=== PATIENT | female | born 1945 | race African-American/Black ===

== ENCOUNTER 2017-08-15 09:03 | Outpatient (RCR) | payer MEDICARE, OTHER ==
[~2017-08-15 09:03] MED LIST: LIDOCAINE VISC 2% SOLN 15 ML UDC ONE; MINERAL OIL/PETROLAT/GLYCERI 6OZ BTL ONE; MUPIROCIN 2% OINT 22 GM TUBE ONE
[2017-08-15] MEDS ORDERED: MUPIROCIN 2% OINT 22 GM TUBE ONE (14:21)
[2017-08-15] MEDS ORDERED: MINERAL OIL/PETROLAT/GLYCERI 6OZ BTL ONE (14:21)
== END 2017-08-17 ==
LOC: WCC 09:03
PROVIDERS: ATTEND Family Medicine
DX: I87.332 Chronic venous hypertension (idiopathic) with ulcer and inflammation of left lower extremity (principal); L97.822 Non-pressure chronic ulcer of other part of left lower leg with fat layer exposed; G89.29 Other chronic pain; G90.09 Other idiopathic peripheral autonomic neuropathy; I87.2 Venous insufficiency (chronic) (peripheral); I89.0 Lymphedema, not elsewhere classified; R60.0 Localized edema; B96.89 Other specified bacterial agents as the cause of diseases classified elsewhere; B96.5 Pseudomonas (aeruginosa) (mallei) (pseudomallei) as the cause of diseases classified elsewhere; B95.2 Enterococcus as the cause of diseases classified elsewhere; I10 Essential (primary) hypertension; K21.9 Gastro-esophageal reflux disease without esophagitis; J45.909 Unspecified asthma, uncomplicated
CPT/HCPCS: 11042; 11045; 29581 ×8; 87071; 87075; 87186; 87205; 97597; 97598; G0463 ×2

== ENCOUNTER → 2017-09-17 | Outpatient (RCR) | payer MEDICARE, OTHER ==
[~2017-09-17] MED LIST changes: +COLLAGENASE OINTMENT 30 GM TUBE ONE; +LIDOCAINE/PRILOCAINE 2.5-2.5% KIT ONE
== END ==
LOC: WCC 08-20 10:03
PROVIDERS: ATTEND Family Medicine
DX: E11.65 Type 2 diabetes mellitus with hyperglycemia (principal); E11.21 Type 2 diabetes mellitus with diabetic nephropathy; E11.628 Type 2 diabetes mellitus with other skin complications; L97.822 Non-pressure chronic ulcer of other part of left lower leg with fat layer exposed; I87.332 Chronic venous hypertension (idiopathic) with ulcer and inflammation of left lower extremity; R60.0 Localized edema; G89.29 Other chronic pain; I87.2 Venous insufficiency (chronic) (peripheral); I89.0 Lymphedema, not elsewhere classified; B95.2 Enterococcus as the cause of diseases classified elsewhere; B96.5 Pseudomonas (aeruginosa) (mallei) (pseudomallei) as the cause of diseases classified elsewhere; B96.89 Other specified bacterial agents as the cause of diseases classified elsewhere; G90.09 Other idiopathic peripheral autonomic neuropathy; I10 Essential (primary) hypertension; J45.909 Unspecified asthma, uncomplicated; K21.9 Gastro-esophageal reflux disease without esophagitis
CPT/HCPCS: 11042 ×3; 11045 ×3; 29581 ×6; 97597; 97598; 97602 ×3; G0463 ×2

== ENCOUNTER → 2017-10-15 | Outpatient (RCR) | payer MEDICARE, OTHER ==
[~2017-10-15] MED LIST changes: +MINERAL OIL/PETROLAT/GLYCERI 2OZ CRM ONE
== END ==
LOC: WCC 09-19 09:51
PROVIDERS: ATTEND Family Medicine
DX: E11.65 Type 2 diabetes mellitus with hyperglycemia (principal); E11.21 Type 2 diabetes mellitus with diabetic nephropathy; E11.628 Type 2 diabetes mellitus with other skin complications; I87.332 Chronic venous hypertension (idiopathic) with ulcer and inflammation of left lower extremity; L97.822 Non-pressure chronic ulcer of other part of left lower leg with fat layer exposed; R60.0 Localized edema; G89.29 Other chronic pain; K21.9 Gastro-esophageal reflux disease without esophagitis; J45.909 Unspecified asthma, uncomplicated; I87.2 Venous insufficiency (chronic) (peripheral); I10 Essential (primary) hypertension; G90.09 Other idiopathic peripheral autonomic neuropathy
CPT/HCPCS: 87071; 87075; 87186; 87205

== ENCOUNTER 2017-11-12 10:17 | Outpatient (RCR) | payer MEDICARE, OTHER ==
[2017-10-29 15:13] LABS: BASOPHILS % 0.5 % (0.0-1.0); EOSINOPHILS # (AUTO) 0.1 (0.0-0.4); EOSINOPHILS % 2.1 % (0.0-6.0); HEMATOCRIT 37.2 % (34.2-44.1); HEMOGLOBIN 11.7 g/dL (12.0-16.0); LYMPHOCYTES # (AUTO) 2.2 (1.0-3.2); LYMPHOCYTES % 36.6 % (18.0-39.1); MEAN CORPUSCULAR HEMOGLOBIN 27.2 pg (28-32); MEAN CORPUSCULAR HGB CONC 31.5 g/dL (31-35); MEAN CORPUSCULAR VOLUME 86.5 fL (81-99); MONOCYTES # (AUTO) 0.7 (0.2-0.8); MONOCYTES % 10.7 % (4.4-11.3); NEUTROPHILS % 49.6 % (38.7-80.0); PLATELET COUNT 227 x10e3/uL (140-360); RED CELL DISTRIBUTION WIDTH 15.9 % (11.7-14.4)
[2017-10-29 15:29] LABS: ANION GAP 12.1 mmol/L (8-16); BLOOD UREA NITROGEN 21 mg/dL (7-26); BUN/CREATININE RATIO 27 (6-25); CARBON DIOXIDE 29 mmol/L (22-29); CHLORIDE 104 mmol/L (98-107); CREATININE, SERUM 0.78 mg/dL (0.57-1.11); EST GLOMERULAR FILTRATION RATE > 60 ML/MIN (60-); GLUCOSE 187 mg/dL (74-118); POTASSIUM 5.1 mmol/L (3.5-5.1); SODIUM 140 mmol/L (136-145)
[~2017-11-12 10:17] MED LIST changes: -COLLAGENASE OINTMENT 30 GM TUBE ONE; -LIDOCAINE VISC 2% SOLN 15 ML UDC ONE; -MINERAL OIL/PETROLAT/GLYCERI 2OZ CRM ONE
[2017-11-12] MEDS ORDERED: LIDOCAINE/PRILOCAINE 2.5-2.5% KIT ONE (13:41)
[2017-11-12] MEDS ORDERED: MINERAL OIL/PETROLAT/GLYCERI 6OZ BTL ONE (13:41)
== END 2017-11-15 ==
LOC: WCC 10:17
PROVIDERS: ATTEND Family Medicine
DX: E11.628 Type 2 diabetes mellitus with other skin complications (principal); E11.21 Type 2 diabetes mellitus with diabetic nephropathy; E11.65 Type 2 diabetes mellitus with hyperglycemia; L97.922 Non-pressure chronic ulcer of unspecified part of left lower leg with fat layer exposed; G89.29 Other chronic pain; I87.332 Chronic venous hypertension (idiopathic) with ulcer and inflammation of left lower extremity; I87.2 Venous insufficiency (chronic) (peripheral); I89.0 Lymphedema, not elsewhere classified; R60.0 Localized edema; G90.09 Other idiopathic peripheral autonomic neuropathy; K21.9 Gastro-esophageal reflux disease without esophagitis; J45.909 Unspecified asthma, uncomplicated; I10 Essential (primary) hypertension
CPT/HCPCS: 11042; 11045; 15271; 15272; 29581 ×10; 36415; 80048; 83036; 84134; 85025; 97597; 97598; Q4121

== ENCOUNTER 2017-12-10 08:21 | Outpatient (RCR) | payer MEDICARE, OTHER ==
[~2017-12-10 08:21] MED LIST changes: -MUPIROCIN 2% OINT 22 GM TUBE ONE
[2017-12-10] MEDS ORDERED: MINERAL OIL/PETROLAT/GLYCERI 6OZ BTL ONE (17:36)
[2017-12-10] MEDS ORDERED: LIDOCAINE/PRILOCAINE 2.5-2.5% KIT ONE (17:36)
== END 2017-12-15 ==
LOC: WCC 08:21
PROVIDERS: ATTEND Family Medicine
DX: E11.65 Type 2 diabetes mellitus with hyperglycemia (principal); E11.21 Type 2 diabetes mellitus with diabetic nephropathy; E11.628 Type 2 diabetes mellitus with other skin complications; I87.332 Chronic venous hypertension (idiopathic) with ulcer and inflammation of left lower extremity; L97.822 Non-pressure chronic ulcer of other part of left lower leg with fat layer exposed; G89.29 Other chronic pain; R60.0 Localized edema; I89.0 Lymphedema, not elsewhere classified; I87.2 Venous insufficiency (chronic) (peripheral); G90.09 Other idiopathic peripheral autonomic neuropathy; I10 Essential (primary) hypertension; E78.00 Pure hypercholesterolemia, unspecified; J45.909 Unspecified asthma, uncomplicated; K21.9 Gastro-esophageal reflux disease without esophagitis
CPT/HCPCS: 11042; 11045; 15271; 15272; 29581 ×8; Q4121

== ENCOUNTER 2018-01-14 09:41 | Outpatient (RCR) | payer MEDICARE, OTHER ==
[2018-01-14] MEDS ORDERED: LIDOCAINE/PRILOCAINE 2.5-2.5% KIT ONE (12:14)
[2018-01-14] MEDS ORDERED: MINERAL OIL/PETROLAT/GLYCERI 6OZ BTL ONE (12:14)
== END 2018-01-15 ==
LOC: WCC 09:41
PROVIDERS: ATTEND Family Medicine
DX: E11.21 Type 2 diabetes mellitus with diabetic nephropathy (principal); E11.65 Type 2 diabetes mellitus with hyperglycemia; E11.628 Type 2 diabetes mellitus with other skin complications; I87.332 Chronic venous hypertension (idiopathic) with ulcer and inflammation of left lower extremity; L97.822 Non-pressure chronic ulcer of other part of left lower leg with fat layer exposed; I87.2 Venous insufficiency (chronic) (peripheral); G90.09 Other idiopathic peripheral autonomic neuropathy; I89.0 Lymphedema, not elsewhere classified; G89.29 Other chronic pain; R60.0 Localized edema; I10 Essential (primary) hypertension; E78.00 Pure hypercholesterolemia, unspecified; J45.909 Unspecified asthma, uncomplicated; K21.9 Gastro-esophageal reflux disease without esophagitis
CPT/HCPCS: 11042; 15271; 15272; 29581 ×8; 87071; 87075; 87186; 87205; 97597; 97598; Q4121

== ENCOUNTER 2018-01-16 13:25 | Outpatient (RCR) | payer MEDICARE, OTHER ==
[2018-01-16] MEDS ORDERED: MINERAL OIL/PETROLAT/GLYCERI 6OZ BTL ONE (13:43)
[2018-01-19] MEDS ORDERED: MINERAL OIL/PETROLAT/GLYCERI 6OZ BTL ONE (16:39)
[2018-01-21] MEDS ORDERED: LIDOCAINE/PRILOCAINE 2.5-2.5% KIT ONE (13:08)
[2018-01-21] MEDS ORDERED: MINERAL OIL/PETROLAT/GLYCERI 6OZ BTL ONE (13:08)
[2018-01-28] MEDS ORDERED: LIDOCAINE/PRILOCAINE 2.5-2.5% KIT ONE (13:22)
[2018-01-28] MEDS ORDERED: MINERAL OIL/PETROLAT/GLYCERI 6OZ BTL ONE (13:22)
[2018-01-30] MEDS ORDERED: MINERAL OIL/PETROLAT/GLYCERI 6OZ BTL ONE (11:44)
[2018-02-02] MEDS ORDERED: MINERAL OIL/PETROLAT/GLYCERI 6OZ BTL ONE (16:30)
[2018-02-09] MEDS ORDERED: MINERAL OIL/PETROLAT/GLYCERI 6OZ BTL ONE (13:31)
[2018-02-11] MEDS ORDERED: LIDOCAINE/PRILOCAINE 2.5-2.5% KIT ONE (17:02)
[2018-02-11] MEDS ORDERED: MINERAL OIL/PETROLAT/GLYCERI 6OZ BTL ONE (17:02)
[2018-02-13] MEDS ORDERED: MINERAL OIL/PETROLAT/GLYCERI 6OZ BTL ONE (15:31)
== END 2018-02-14 ==
LOC: PT 13:25
PROVIDERS: ATTEND Specialist
DX: M17.0 Bilateral primary osteoarthritis of knee (principal); M25.562 Pain in left knee; M25.561 Pain in right knee; M25.662 Stiffness of left knee, not elsewhere classified; M25.661 Stiffness of right knee, not elsewhere classified; R26.2 Difficulty in walking, not elsewhere classified; M62.81 Muscle weakness (generalized)
CPT/HCPCS: 11042 ×2; 11045 ×2; 15271; 15272; 29581 ×8; 97110; G8979; G8980; Q4131

== ENCOUNTER 2018-02-13 14:51 | Outpatient (RCR) | payer MEDICARE, OTHER | END 2018-02-14 | LOC: WCC 14:51 | PROVIDERS: ATTEND Family Medicine | DX: E11.21 Type 2 diabetes mellitus with diabetic nephropathy (principal); E11.65 Type 2 diabetes mellitus with hyperglycemia; E11.628 Type 2 diabetes mellitus with other skin complications; I87.332 Chronic venous hypertension (idiopathic) with ulcer and inflammation of left lower extremity; L97.822 Non-pressure chronic ulcer of other part of left lower leg with fat layer exposed; G89.29 Other chronic pain; I87.2 Venous insufficiency (chronic) (peripheral); I89.0 Lymphedema, not elsewhere classified; R60.0 Localized edema; I10 Essential (primary) hypertension; K21.9 Gastro-esophageal reflux disease without esophagitis; J45.909 Unspecified asthma, uncomplicated; G90.09 Other idiopathic peripheral autonomic neuropathy; E78.00 Pure hypercholesterolemia, unspecified ==

== ENCOUNTER 2018-03-16 11:47 | Outpatient (RCR) | payer MEDICARE, OTHER ==
[~2018-03-16 11:47] MED LIST changes: +LIDOCAINE VISC 2% SOLN 15 ML UDC ONE; -LIDOCAINE/PRILOCAINE 2.5-2.5% KIT ONE; +MUPIROCIN 2% OINT 22 GM TUBE ONE
[2018-03-16] MEDS ORDERED: MINERAL OIL/PETROLAT/GLYCERI 6OZ BTL ONE (18:02)
[2018-03-16] MEDS ORDERED: MUPIROCIN 2% OINT 22 GM TUBE ONE (18:02)
== END 2018-03-17 ==
LOC: WCC 11:47
PROVIDERS: ATTEND Family Medicine
DX: E11.65 Type 2 diabetes mellitus with hyperglycemia (principal); E11.21 Type 2 diabetes mellitus with diabetic nephropathy; E11.628 Type 2 diabetes mellitus with other skin complications; I87.332 Chronic venous hypertension (idiopathic) with ulcer and inflammation of left lower extremity; L97.822 Non-pressure chronic ulcer of other part of left lower leg with fat layer exposed; G89.29 Other chronic pain; I89.0 Lymphedema, not elsewhere classified; R60.0 Localized edema; I87.2 Venous insufficiency (chronic) (peripheral); K21.9 Gastro-esophageal reflux disease without esophagitis; J45.909 Unspecified asthma, uncomplicated; I10 Essential (primary) hypertension; G90.09 Other idiopathic peripheral autonomic neuropathy; E78.00 Pure hypercholesterolemia, unspecified

== ENCOUNTER → 2018-04-17 | Outpatient (RCR) | payer MEDICARE, OTHER ==
[~2018-04-17] MED LIST changes: +COLLAGENASE OINTMENT 30 GM TUBE ONE; +LIDOCAINE/PRILOCAINE 2.5-2.5% KIT ONE
== END ==
LOC: WCC 03-18 11:30
PROVIDERS: ATTEND Family Medicine
DX: E11.65 Type 2 diabetes mellitus with hyperglycemia (principal); E11.21 Type 2 diabetes mellitus with diabetic nephropathy; E11.628 Type 2 diabetes mellitus with other skin complications; I87.332 Chronic venous hypertension (idiopathic) with ulcer and inflammation of left lower extremity; L97.822 Non-pressure chronic ulcer of other part of left lower leg with fat layer exposed; G89.29 Other chronic pain; I89.0 Lymphedema, not elsewhere classified; R60.0 Localized edema; I87.2 Venous insufficiency (chronic) (peripheral); G90.09 Other idiopathic peripheral autonomic neuropathy; E78.00 Pure hypercholesterolemia, unspecified; I10 Essential (primary) hypertension; J45.909 Unspecified asthma, uncomplicated; K21.9 Gastro-esophageal reflux disease without esophagitis

== ENCOUNTER 2018-05-13 12:57 | Outpatient (RCR) | payer MEDICARE, OTHER | END 2018-05-17 | LOC: WCC 12:57 | PROVIDERS: ATTEND Podiatrist Foot & Ankle Surgery | DX: E11.628 Type 2 diabetes mellitus with other skin complications (principal); E11.21 Type 2 diabetes mellitus with diabetic nephropathy; E11.65 Type 2 diabetes mellitus with hyperglycemia; I87.332 Chronic venous hypertension (idiopathic) with ulcer and inflammation of left lower extremity; L97.822 Non-pressure chronic ulcer of other part of left lower leg with fat layer exposed; G89.29 Other chronic pain; R60.0 Localized edema; I87.2 Venous insufficiency (chronic) (peripheral); I89.0 Lymphedema, not elsewhere classified; G90.09 Other idiopathic peripheral autonomic neuropathy; I10 Essential (primary) hypertension; K21.9 Gastro-esophageal reflux disease without esophagitis; J45.909 Unspecified asthma, uncomplicated; E78.00 Pure hypercholesterolemia, unspecified ==

== ENCOUNTER → 2018-06-17 | Outpatient (RCR) | payer MEDICARE, OTHER ==
[~2018-06-17] MED LIST changes: -COLLAGENASE OINTMENT 30 GM TUBE ONE; +LIDOCAINE 2% /EPINEPHRINE 20 ML SDV INJ ONE; -LIDOCAINE VISC 2% SOLN 15 ML UDC ONE
== END ==
LOC: WCC 05-27 01:00
PROVIDERS: ATTEND Family Medicine
DX: E11.21 Type 2 diabetes mellitus with diabetic nephropathy (principal); E11.65 Type 2 diabetes mellitus with hyperglycemia; E11.628 Type 2 diabetes mellitus with other skin complications; L97.821 Non-pressure chronic ulcer of other part of left lower leg limited to breakdown of skin; I87.312 Chronic venous hypertension (idiopathic) with ulcer of left lower extremity; G89.29 Other chronic pain; I89.0 Lymphedema, not elsewhere classified; R60.0 Localized edema; I87.2 Venous insufficiency (chronic) (peripheral); G90.09 Other idiopathic peripheral autonomic neuropathy; I10 Essential (primary) hypertension; E78.00 Pure hypercholesterolemia, unspecified; J45.909 Unspecified asthma, uncomplicated; K21.9 Gastro-esophageal reflux disease without esophagitis
CPT/HCPCS: 11042; 29581 ×5; 97597 ×2; 99212; 99213 ×3; J2001

== ENCOUNTER 2018-07-15 11:26 | Outpatient (RCR) | payer MEDICARE, OTHER ==
[~2018-07-15 11:26] MED LIST changes: -LIDOCAINE 2% /EPINEPHRINE 20 ML SDV INJ ONE
[2018-07-15] MEDS ORDERED: MINERAL OIL/PETROLAT/GLYCERI 6OZ BTL ONE (12:24)
[2018-07-15] MEDS ORDERED: LIDOCAINE/PRILOCAINE 2.5-2.5% KIT ONE (12:24)
[2018-07-17] MEDS ORDERED: MINERAL OIL/PETROLAT/GLYCERI 6OZ BTL ONE (17:28)
== END 2018-07-17 ==
LOC: WCC 11:26
PROVIDERS: ATTEND Family Medicine
DX: E11.628 Type 2 diabetes mellitus with other skin complications (principal); E11.21 Type 2 diabetes mellitus with diabetic nephropathy; E11.65 Type 2 diabetes mellitus with hyperglycemia; I87.312 Chronic venous hypertension (idiopathic) with ulcer of left lower extremity; L97.821 Non-pressure chronic ulcer of other part of left lower leg limited to breakdown of skin; I87.2 Venous insufficiency (chronic) (peripheral); I89.0 Lymphedema, not elsewhere classified; G89.29 Other chronic pain; R60.0 Localized edema; G90.09 Other idiopathic peripheral autonomic neuropathy; I10 Essential (primary) hypertension; K21.9 Gastro-esophageal reflux disease without esophagitis; J45.909 Unspecified asthma, uncomplicated; E78.00 Pure hypercholesterolemia, unspecified
CPT/HCPCS: 87071; 87075; 87186; 87205

== ENCOUNTER 2018-07-22 14:17 | Outpatient (RCR) | payer MEDICARE, OTHER ==
[~2018-07-22 14:17] MED LIST changes: -LIDOCAINE/PRILOCAINE 2.5-2.5% KIT ONE
== END 2018-08-17 ==
LOC: WCC 14:17
PROVIDERS: ATTEND Family Medicine
DX: E11.21 Type 2 diabetes mellitus with diabetic nephropathy (principal); E11.65 Type 2 diabetes mellitus with hyperglycemia; E11.628 Type 2 diabetes mellitus with other skin complications; I87.312 Chronic venous hypertension (idiopathic) with ulcer of left lower extremity; L97.821 Non-pressure chronic ulcer of other part of left lower leg limited to breakdown of skin; G89.29 Other chronic pain; R60.0 Localized edema; I89.0 Lymphedema, not elsewhere classified; I87.2 Venous insufficiency (chronic) (peripheral); G90.09 Other idiopathic peripheral autonomic neuropathy; A49.02 Methicillin resistant Staphylococcus aureus infection, unspecified site; I10 Essential (primary) hypertension; K21.9 Gastro-esophageal reflux disease without esophagitis; J45.909 Unspecified asthma, uncomplicated; E78.00 Pure hypercholesterolemia, unspecified

== ENCOUNTER 2018-09-16 10:12 | Outpatient (RCR) | payer MEDICARE, OTHER ==
[~2018-09-16 10:12] MED LIST changes: +LIDOCAINE/PRILOCAINE 2.5-2.5% KIT ONE
[2018-09-16] MEDS ORDERED: LIDOCAINE/PRILOCAINE 2.5-2.5% KIT ONE (14:02)
[2018-09-16] MEDS ORDERED: MUPIROCIN 2% OINT 22 GM TUBE ONE (14:02)
[2018-09-16] MEDS ORDERED: MINERAL OIL/PETROLAT/GLYCERI 6OZ BTL ONE (14:02)
== END 2018-09-17 ==
LOC: WCC 10:12
PROVIDERS: ATTEND Family Medicine
DX: E11.21 Type 2 diabetes mellitus with diabetic nephropathy (principal); E11.65 Type 2 diabetes mellitus with hyperglycemia; E11.628 Type 2 diabetes mellitus with other skin complications; I87.332 Chronic venous hypertension (idiopathic) with ulcer and inflammation of left lower extremity; L97.821 Non-pressure chronic ulcer of other part of left lower leg limited to breakdown of skin; G90.09 Other idiopathic peripheral autonomic neuropathy; G89.29 Other chronic pain; R60.0 Localized edema; I10 Essential (primary) hypertension; T23.222A Burn of second degree of single left finger (nail) except thumb, initial encounter; E78.00 Pure hypercholesterolemia, unspecified; I87.2 Venous insufficiency (chronic) (peripheral); I89.0 Lymphedema, not elsewhere classified; J45.909 Unspecified asthma, uncomplicated; K21.9 Gastro-esophageal reflux disease without esophagitis
CPT/HCPCS: 87071; 87075; 87186; 87205

== ENCOUNTER 2018-10-14 11:50 | Outpatient (RCR) | payer MEDICARE, OTHER ==
[2018-10-14] MEDS ORDERED: MUPIROCIN 2% OINT 22 GM TUBE ONE (13:52)
[2018-10-14] MEDS ORDERED: LIDOCAINE/PRILOCAINE 2.5-2.5% KIT ONE (13:52)
[2018-10-14] MEDS ORDERED: MINERAL OIL/PETROLAT/GLYCERI 6OZ BTL ONE (13:52)
== END 2018-10-15 ==
LOC: WCC 11:50
PROVIDERS: ATTEND Family Medicine
DX: I87.332 Chronic venous hypertension (idiopathic) with ulcer and inflammation of left lower extremity (principal); L97.821 Non-pressure chronic ulcer of other part of left lower leg limited to breakdown of skin; T23.222A Burn of second degree of single left finger (nail) except thumb, initial encounter; G89.29 Other chronic pain; I87.2 Venous insufficiency (chronic) (peripheral); I89.0 Lymphedema, not elsewhere classified; R60.0 Localized edema; I10 Essential (primary) hypertension; B96.89 Other specified bacterial agents as the cause of diseases classified elsewhere; B96.5 Pseudomonas (aeruginosa) (mallei) (pseudomallei) as the cause of diseases classified elsewhere; K21.9 Gastro-esophageal reflux disease without esophagitis; J45.909 Unspecified asthma, uncomplicated; G90.09 Other idiopathic peripheral autonomic neuropathy; E78.00 Pure hypercholesterolemia, unspecified
CPT/HCPCS: 87071; 87075; 87205

== ENCOUNTER → 2018-11-06 | Outpatient (CLI) | payer MEDICARE, OTHER ==
--- NOTE | 2018-11-06 13:53 | Diagnostic Imaging Report ---
EXAM: LOWER LEG LEFT DATE: 11/06/2018 12:19 PM INDICATION: Chronic swelling COMPARISON: None FINDINGS: 5 views of the left tibia and fibula were obtained. No displaced fracture or bony destructive lesion is seen. There is distal hardware with plate and screw fixation along the distal fibula and lateral malleolus, and a screw and pin through the medial malleolus. The ankle mortise is symmetrically marginated. There is soft tissue edema about the ankle. Degenerative change with chondrocalcinosis is seen at the knee. IMPRESSION: No acute bony abnormality. There is intact appearing hardware at the lateral and medial malleoli. Signed by: Dr. Star Stephenson M.D. on 11/06/2018 1:50 PM
== END ==
LOC: RAD 12:08
PROVIDERS: ATTEND Student in an Organized Health Care Education/Training Program
DX: G89.29 Other chronic pain (principal)

== ENCOUNTER 2018-11-11 10:55 | Outpatient (RCR) | payer MEDICARE, OTHER ==
[2018-11-11] MEDS ORDERED: MINERAL OIL/PETROLAT/GLYCERI 6OZ BTL ONE (18:50)
== END 2018-11-15 ==
LOC: WCC 10:55
PROVIDERS: ATTEND Family Medicine
DX: E11.21 Type 2 diabetes mellitus with diabetic nephropathy (principal); E11.65 Type 2 diabetes mellitus with hyperglycemia; E11.628 Type 2 diabetes mellitus with other skin complications; L97.821 Non-pressure chronic ulcer of other part of left lower leg limited to breakdown of skin; G89.29 Other chronic pain; I87.332 Chronic venous hypertension (idiopathic) with ulcer and inflammation of left lower extremity; I87.2 Venous insufficiency (chronic) (peripheral); I89.0 Lymphedema, not elsewhere classified; R60.0 Localized edema; G90.09 Other idiopathic peripheral autonomic neuropathy; I10 Essential (primary) hypertension; T23.222A Burn of second degree of single left finger (nail) except thumb, initial encounter; K21.9 Gastro-esophageal reflux disease without esophagitis; J45.909 Unspecified asthma, uncomplicated; E78.00 Pure hypercholesterolemia, unspecified

== ENCOUNTER 2019-02-12 11:56 | Outpatient (RCR) | payer MEDICARE, OTHER ==
[~2019-02-12 11:56] MED LIST changes: -LIDOCAINE/PRILOCAINE 2.5-2.5% KIT ONE; +MINERAL OIL/PETROLAT/GLYCERI 2OZ CRM ONE; -MINERAL OIL/PETROLAT/GLYCERI 6OZ BTL ONE
== END 2019-02-14 ==
LOC: WCC 11:56
PROVIDERS: ATTEND Family Medicine
DX: E11.21 Type 2 diabetes mellitus with diabetic nephropathy (principal); E11.65 Type 2 diabetes mellitus with hyperglycemia; E11.628 Type 2 diabetes mellitus with other skin complications; I87.321 Chronic venous hypertension (idiopathic) with inflammation of right lower extremity; L97.821 Non-pressure chronic ulcer of other part of left lower leg limited to breakdown of skin; R60.0 Localized edema; I89.0 Lymphedema, not elsewhere classified; I87.2 Venous insufficiency (chronic) (peripheral); G89.29 Other chronic pain; E78.00 Pure hypercholesterolemia, unspecified; G90.09 Other idiopathic peripheral autonomic neuropathy; I10 Essential (primary) hypertension; J45.909 Unspecified asthma, uncomplicated; K21.9 Gastro-esophageal reflux disease without esophagitis

== ENCOUNTER → 2019-02-16 | Outpatient (CLI) | payer MEDICARE, OTHER | LOC: RAD 10:10 | PROVIDERS: ATTEND Family Medicine | DX: I87.2 Venous insufficiency (chronic) (peripheral) (principal) | CPT/HCPCS: 93971 ==

== ENCOUNTER → 2019-03-17 | Outpatient (RCR) | payer MEDICARE, OTHER ==
[~2019-03-17] MED LIST changes: +LIDOCAINE VISC 2% SOLN 15 ML UDC ONE; +LIDOCAINE/PRILOCAINE 2.5-2.5% KIT ONE; -MINERAL OIL/PETROLAT/GLYCERI 2OZ CRM ONE; +MINERAL OIL/PETROLAT/GLYCERI 6OZ BTL ONE
[2019-03-17 14:16] LABS: BASOPHILS % 0.7 % (0.0-1.0); EOSINOPHILS # (AUTO) 0.1 (0.0-0.4); EOSINOPHILS % 2.3 % (0.0-6.0); HEMATOCRIT 36.1 % (34.2-44.1); HEMOGLOBIN 11.4 g/dL (12.0-16.0); LYMPHOCYTES # (AUTO) 2.3 (1.0-3.2); LYMPHOCYTES % 38.5 % (18.0-39.1); MEAN CORPUSCULAR HEMOGLOBIN 27.7 pg (28-32); MEAN CORPUSCULAR HGB CONC 31.6 g/dL (31-35); MEAN CORPUSCULAR VOLUME 87.6 fL (81-99); MONOCYTES # (AUTO) 0.6 (0.2-0.8); MONOCYTES % 9.7 % (4.4-11.3); NEUTROPHILS # (AUTO) 2.9 (2.1-6.9); NEUTROPHILS % 48.3 % (38.7-80.0); PLATELET COUNT 283 x10e3/uL (140-360); RED BLOOD COUNT 4.12 x10e6/uL (3.6-5.1); RED CELL DISTRIBUTION WIDTH 15.3 % (11.7-14.4)
[2019-03-17 14:39] LABS: ALANINE AMINOTRANSFERASE 17 IU/L (0-55); ALBUMIN/GLOBULIN RATIO 0.6 (0.8-2.0); ALKALINE PHOSPHATASE 76 IU/L (40-150); ANION GAP 15.6 mmol/L (8-16); BLOOD UREA NITROGEN 20 mg/dL (7-26); BUN/CREATININE RATIO 25 (6-25); CALCIUM 9.6 mg/dL (8.4-10.2); CARBON DIOXIDE 27 mmol/L (22-29); CHLORIDE 100 mmol/L (98-107); CREATININE, SERUM 0.79 mg/dL (0.57-1.11); EST GLOMERULAR FILTRATION RATE > 60 ML/MIN (60-); GLUCOSE 190 mg/dL (74-118); POTASSIUM 4.6 mmol/L (3.5-5.1); SODIUM 138 mmol/L (136-145)
== END ==
LOC: WCC 02-15 13:35
PROVIDERS: ATTEND Family Medicine
DX: E11.21 Type 2 diabetes mellitus with diabetic nephropathy (principal); E11.65 Type 2 diabetes mellitus with hyperglycemia; E11.628 Type 2 diabetes mellitus with other skin complications; L97.821 Non-pressure chronic ulcer of other part of left lower leg limited to breakdown of skin; I87.332 Chronic venous hypertension (idiopathic) with ulcer and inflammation of left lower extremity; G90.09 Other idiopathic peripheral autonomic neuropathy; G89.29 Other chronic pain; I87.2 Venous insufficiency (chronic) (peripheral); R60.0 Localized edema; I89.0 Lymphedema, not elsewhere classified; I10 Essential (primary) hypertension; K21.9 Gastro-esophageal reflux disease without esophagitis; J45.909 Unspecified asthma, uncomplicated; E78.00 Pure hypercholesterolemia, unspecified
CPT/HCPCS: 36415; 80053; 83036; 84134; 85025

== ENCOUNTER → 2019-03-29 | Outpatient (CLI) | payer OTHER, MEDICARE ==
--- NOTE | 2019-03-29 15:31 | Diagnostic Imaging Report ---
EXAMINATION: ANKLE TWO VIEWS LEFT INDICATION: Pain COMPARISON: Left lower leg radiographs of 11/06/2018 FINDINGS: AP and crosstable lateral views of the left ankle demonstrate soft tissue swelling along the medial aspect of the ankle. No acute fracture or dislocation. Alignment appears unchanged status post open reduction internal fixation of medial and lateral malleolus fractures with plate and screw construct at the distal fibula and one threaded screw and pin at the medial malleolus. No evidence of hardware failure. IMPRESSION: Redemonstration of medial ankle soft tissue swelling with no acute underlying osseous injury. Signed by: Josefina Peralta MD on 03/29/2019 3:28 PM
== END ==
LOC: RAD 13:46
PROVIDERS: ATTEND Family Medicine
DX: M79.672 Pain in left foot (principal)

== ENCOUNTER 2019-04-16 11:50 | Outpatient (RCR) | payer MEDICARE, OTHER ==
[~2019-04-16 11:50] MED LIST changes: +MINERAL OIL/PETROLAT/GLYCERI 2OZ CRM ONE
[2019-04-16] MEDS ORDERED: MINERAL OIL/PETROLAT/GLYCERI 6OZ BTL ONE (18:34)
== END 2019-04-17 ==
LOC: WCC 11:50
PROVIDERS: ATTEND Family Medicine
DX: E11.628 Type 2 diabetes mellitus with other skin complications (principal); E11.21 Type 2 diabetes mellitus with diabetic nephropathy; E11.65 Type 2 diabetes mellitus with hyperglycemia; L97.821 Non-pressure chronic ulcer of other part of left lower leg limited to breakdown of skin; I87.332 Chronic venous hypertension (idiopathic) with ulcer and inflammation of left lower extremity; I87.2 Venous insufficiency (chronic) (peripheral); G90.09 Other idiopathic peripheral autonomic neuropathy; I89.0 Lymphedema, not elsewhere classified; R60.0 Localized edema; G89.29 Other chronic pain; I10 Essential (primary) hypertension; K21.9 Gastro-esophageal reflux disease without esophagitis; J45.909 Unspecified asthma, uncomplicated; E78.00 Pure hypercholesterolemia, unspecified
CPT/HCPCS: 11042 ×4; 11045 ×3; 17250; 29581 ×9; 97602; 99212; 99213 ×10; C5271; C5272; Q4117

== ENCOUNTER → 2019-05-17 | Outpatient (RCR) | payer MEDICARE, OTHER ==
[~2019-05-17] MED LIST changes: -MINERAL OIL/PETROLAT/GLYCERI 2OZ CRM ONE
== END ==
LOC: WCC 04-21 14:09
PROVIDERS: ATTEND Family Medicine
DX: E11.21 Type 2 diabetes mellitus with diabetic nephropathy (principal); E11.65 Type 2 diabetes mellitus with hyperglycemia; E11.628 Type 2 diabetes mellitus with other skin complications; I87.332 Chronic venous hypertension (idiopathic) with ulcer and inflammation of left lower extremity; L97.821 Non-pressure chronic ulcer of other part of left lower leg limited to breakdown of skin; G89.29 Other chronic pain; R60.0 Localized edema; I87.312 Chronic venous hypertension (idiopathic) with ulcer of left lower extremity; G90.09 Other idiopathic peripheral autonomic neuropathy; I87.2 Venous insufficiency (chronic) (peripheral); I89.0 Lymphedema, not elsewhere classified; I10 Essential (primary) hypertension; E78.00 Pure hypercholesterolemia, unspecified; J45.909 Unspecified asthma, uncomplicated; K21.9 Gastro-esophageal reflux disease without esophagitis
CPT/HCPCS: 11042 ×2; 11045 ×2; 15271; 15272; 29581 ×9; 99212 ×3; 99213 ×4; Q4121

== ENCOUNTER 2019-06-16 10:39 | Outpatient (RCR) | payer MEDICARE, OTHER ==
[~2019-06-16 10:39] MED LIST changes: -LIDOCAINE VISC 2% SOLN 15 ML UDC ONE; -MUPIROCIN 2% OINT 22 GM TUBE ONE; +TRIAMCINOLONE ACET 0.1% CREAM 15 GM TUBE ONE
[2019-06-16] MEDS ORDERED: MINERAL OIL/PETROLAT/GLYCERI 6OZ BTL ONE (19:23)
[2019-06-16] MEDS ORDERED: LIDOCAINE VISC 2% SOLN 15 ML UDC ONE (19:23)
== END 2019-06-17 ==
LOC: WCC 10:39
PROVIDERS: ATTEND Family Medicine
DX: E11.21 Type 2 diabetes mellitus with diabetic nephropathy (principal); E11.628 Type 2 diabetes mellitus with other skin complications; E11.65 Type 2 diabetes mellitus with hyperglycemia; I87.332 Chronic venous hypertension (idiopathic) with ulcer and inflammation of left lower extremity; L97.821 Non-pressure chronic ulcer of other part of left lower leg limited to breakdown of skin; I87.2 Venous insufficiency (chronic) (peripheral); I89.0 Lymphedema, not elsewhere classified; R60.0 Localized edema; G89.29 Other chronic pain; I10 Essential (primary) hypertension; G90.09 Other idiopathic peripheral autonomic neuropathy; K21.9 Gastro-esophageal reflux disease without esophagitis; E78.00 Pure hypercholesterolemia, unspecified; J45.909 Unspecified asthma, uncomplicated
CPT/HCPCS: 87071; 87075; 87186; 87205

== ENCOUNTER 2019-07-14 10:17 | Outpatient (RCR) | payer MEDICARE, OTHER ==
[~2019-07-14 10:17] MED LIST changes: +SILVER SULFADIAZINE 50GM CREAM ONE; -TRIAMCINOLONE ACET 0.1% CREAM 15 GM TUBE ONE
[2019-07-14] MEDS ORDERED: LIDOCAINE/PRILOCAINE 2.5-2.5% KIT ONE (17:12)
[2019-07-14] MEDS ORDERED: MINERAL OIL/PETROLAT/GLYCERI 6OZ BTL ONE (17:12)
== END 2019-07-17 ==
LOC: WCC 10:17
PROVIDERS: ATTEND Family Medicine
DX: E11.628 Type 2 diabetes mellitus with other skin complications (principal); M65.072 Abscess of tendon sheath, left ankle and foot; I87.332 Chronic venous hypertension (idiopathic) with ulcer and inflammation of left lower extremity; L97.821 Non-pressure chronic ulcer of other part of left lower leg limited to breakdown of skin; R60.0 Localized edema; I89.0 Lymphedema, not elsewhere classified; I87.2 Venous insufficiency (chronic) (peripheral); G90.09 Other idiopathic peripheral autonomic neuropathy; G89.29 Other chronic pain; I10 Essential (primary) hypertension; B96.5 Pseudomonas (aeruginosa) (mallei) (pseudomallei) as the cause of diseases classified elsewhere; K21.9 Gastro-esophageal reflux disease without esophagitis; J45.909 Unspecified asthma, uncomplicated; E78.00 Pure hypercholesterolemia, unspecified

== ENCOUNTER 2019-10-15 12:20 | Outpatient (RCR) | payer MEDICARE, OTHER ==
[~2019-10-15 12:20] MED LIST changes: +HYDROCORTISONE 1% CREAM 30 GM TUBE ONE; +MINERAL OIL/PETROLAT/GLYCERI 2OZ CRM ONE; -SILVER SULFADIAZINE 50GM CREAM ONE
== END 2019-10-16 ==
LOC: WCC 12:20
PROVIDERS: ATTEND Family Medicine
DX: E11.628 Type 2 diabetes mellitus with other skin complications (principal); E11.21 Type 2 diabetes mellitus with diabetic nephropathy; E11.65 Type 2 diabetes mellitus with hyperglycemia; I87.332 Chronic venous hypertension (idiopathic) with ulcer and inflammation of left lower extremity; L97.821 Non-pressure chronic ulcer of other part of left lower leg limited to breakdown of skin; R60.0 Localized edema; I87.2 Venous insufficiency (chronic) (peripheral); I89.0 Lymphedema, not elsewhere classified; G89.29 Other chronic pain; G90.09 Other idiopathic peripheral autonomic neuropathy; I10 Essential (primary) hypertension; K21.9 Gastro-esophageal reflux disease without esophagitis; J45.909 Unspecified asthma, uncomplicated; E78.00 Pure hypercholesterolemia, unspecified

== ENCOUNTER 2019-11-15 12:04 | Outpatient (RCR) | payer MEDICARE, OTHER ==
[~2019-11-15 12:04] MED LIST changes: -HYDROCORTISONE 1% CREAM 30 GM TUBE ONE
[2019-11-15] MEDS ORDERED: MINERAL OIL/PETROLAT/GLYCERI 6OZ BTL ONE (18:08)
== END 2019-11-16 ==
LOC: WCC 12:04
PROVIDERS: ATTEND Family Medicine
DX: E11.628 Type 2 diabetes mellitus with other skin complications (principal); E11.21 Type 2 diabetes mellitus with diabetic nephropathy; E11.65 Type 2 diabetes mellitus with hyperglycemia; I87.332 Chronic venous hypertension (idiopathic) with ulcer and inflammation of left lower extremity; L97.821 Non-pressure chronic ulcer of other part of left lower leg limited to breakdown of skin; R60.0 Localized edema; I87.2 Venous insufficiency (chronic) (peripheral); I89.0 Lymphedema, not elsewhere classified; G89.29 Other chronic pain; I10 Essential (primary) hypertension; M17.12 Unilateral primary osteoarthritis, left knee; K21.9 Gastro-esophageal reflux disease without esophagitis; J45.909 Unspecified asthma, uncomplicated; G90.09 Other idiopathic peripheral autonomic neuropathy; E78.00 Pure hypercholesterolemia, unspecified

== ENCOUNTER 2019-12-15 09:11 | Outpatient (RCR) | payer MEDICARE, OTHER ==
[2019-12-15] MEDS ORDERED: MINERAL OIL/PETROLAT/GLYCERI 2OZ CRM ONE (13:43)
[2019-12-15] MEDS ORDERED: LIDOCAINE/PRILOCAINE 2.5-2.5% KIT ONE (13:43)
== END 2019-12-16 ==
LOC: WCC 09:11
PROVIDERS: ATTEND Family Medicine
DX: E11.21 Type 2 diabetes mellitus with diabetic nephropathy (principal); E11.65 Type 2 diabetes mellitus with hyperglycemia; E11.628 Type 2 diabetes mellitus with other skin complications; I87.332 Chronic venous hypertension (idiopathic) with ulcer and inflammation of left lower extremity; L97.821 Non-pressure chronic ulcer of other part of left lower leg limited to breakdown of skin; R60.0 Localized edema; I87.2 Venous insufficiency (chronic) (peripheral); I89.0 Lymphedema, not elsewhere classified; M17.12 Unilateral primary osteoarthritis, left knee; G89.29 Other chronic pain; G90.09 Other idiopathic peripheral autonomic neuropathy; I10 Essential (primary) hypertension; E78.00 Pure hypercholesterolemia, unspecified; J45.909 Unspecified asthma, uncomplicated; K21.9 Gastro-esophageal reflux disease without esophagitis

== ENCOUNTER 2020-01-14 12:58 | Outpatient (RCR) | payer MEDICARE, OTHER ==
[2020-01-14] MEDS ORDERED: MINERAL OIL/PETROLAT/GLYCERI 6OZ BTL ONE (14:44)
== END 2020-01-16 ==
LOC: WCC 12:58
PROVIDERS: ATTEND Family Medicine
DX: E11.628 Type 2 diabetes mellitus with other skin complications (principal); E11.21 Type 2 diabetes mellitus with diabetic nephropathy; E11.65 Type 2 diabetes mellitus with hyperglycemia; I87.332 Chronic venous hypertension (idiopathic) with ulcer and inflammation of left lower extremity; L97.821 Non-pressure chronic ulcer of other part of left lower leg limited to breakdown of skin; G89.29 Other chronic pain; I89.0 Lymphedema, not elsewhere classified; R60.0 Localized edema; I87.2 Venous insufficiency (chronic) (peripheral); I10 Essential (primary) hypertension; M17.12 Unilateral primary osteoarthritis, left knee; K21.9 Gastro-esophageal reflux disease without esophagitis; J45.909 Unspecified asthma, uncomplicated; G90.09 Other idiopathic peripheral autonomic neuropathy; E78.00 Pure hypercholesterolemia, unspecified

== ENCOUNTER 2020-02-14 09:56 | Outpatient (RCR) | payer MEDICARE, OTHER | END 2020-02-15 | LOC: WCC 09:56 | PROVIDERS: ATTEND Family Medicine | DX: E11.65 Type 2 diabetes mellitus with hyperglycemia (principal); E11.21 Type 2 diabetes mellitus with diabetic nephropathy; E11.628 Type 2 diabetes mellitus with other skin complications; I87.332 Chronic venous hypertension (idiopathic) with ulcer and inflammation of left lower extremity; L97.821 Non-pressure chronic ulcer of other part of left lower leg limited to breakdown of skin; I89.0 Lymphedema, not elsewhere classified; I87.2 Venous insufficiency (chronic) (peripheral); R60.0 Localized edema; G89.29 Other chronic pain; G90.09 Other idiopathic peripheral autonomic neuropathy; I10 Essential (primary) hypertension; M17.12 Unilateral primary osteoarthritis, left knee; K21.9 Gastro-esophageal reflux disease without esophagitis; J45.909 Unspecified asthma, uncomplicated; E78.00 Pure hypercholesterolemia, unspecified ==

== ENCOUNTER → 2020-03-17 | Outpatient (RCR) | payer MEDICARE, OTHER | LOC: WCC 02-16 11:02 | PROVIDERS: ATTEND Family Medicine | DX: E11.21 Type 2 diabetes mellitus with diabetic nephropathy (principal); E11.65 Type 2 diabetes mellitus with hyperglycemia; E11.628 Type 2 diabetes mellitus with other skin complications; I87.332 Chronic venous hypertension (idiopathic) with ulcer and inflammation of left lower extremity; L97.821 Non-pressure chronic ulcer of other part of left lower leg limited to breakdown of skin; R60.0 Localized edema; I89.0 Lymphedema, not elsewhere classified; I87.2 Venous insufficiency (chronic) (peripheral); G90.09 Other idiopathic peripheral autonomic neuropathy; G89.29 Other chronic pain; I10 Essential (primary) hypertension; M17.12 Unilateral primary osteoarthritis, left knee; K21.9 Gastro-esophageal reflux disease without esophagitis; J45.909 Unspecified asthma, uncomplicated; E78.00 Pure hypercholesterolemia, unspecified | CPT/HCPCS: 87071; 87075; 87186; 87205 ==

== ENCOUNTER → 2020-04-17 | Outpatient (RCR) | payer MEDICARE, OTHER | LOC: WCC 03-20 14:40 | PROVIDERS: ATTEND Family Medicine | DX: E11.21 Type 2 diabetes mellitus with diabetic nephropathy (principal); E11.65 Type 2 diabetes mellitus with hyperglycemia; E11.628 Type 2 diabetes mellitus with other skin complications; I87.332 Chronic venous hypertension (idiopathic) with ulcer and inflammation of left lower extremity; I87.312 Chronic venous hypertension (idiopathic) with ulcer of left lower extremity; L97.821 Non-pressure chronic ulcer of other part of left lower leg limited to breakdown of skin; I87.2 Venous insufficiency (chronic) (peripheral); I89.0 Lymphedema, not elsewhere classified; R60.0 Localized edema; G89.29 Other chronic pain; G90.09 Other idiopathic peripheral autonomic neuropathy; I10 Essential (primary) hypertension; M17.12 Unilateral primary osteoarthritis, left knee; K21.9 Gastro-esophageal reflux disease without esophagitis; J45.909 Unspecified asthma, uncomplicated; E78.00 Pure hypercholesterolemia, unspecified | CPT/HCPCS: 87071; 87075; 87186; 87205 ==

== ENCOUNTER → 2020-05-17 | Outpatient (RCR) | payer MEDICARE, OTHER | LOC: WCC 04-19 10:39 | PROVIDERS: ATTEND Family Medicine | DX: E11.628 Type 2 diabetes mellitus with other skin complications (principal); E11.21 Type 2 diabetes mellitus with diabetic nephropathy; E11.65 Type 2 diabetes mellitus with hyperglycemia; L97.821 Non-pressure chronic ulcer of other part of left lower leg limited to breakdown of skin; I87.332 Chronic venous hypertension (idiopathic) with ulcer and inflammation of left lower extremity; I87.312 Chronic venous hypertension (idiopathic) with ulcer of left lower extremity; I89.0 Lymphedema, not elsewhere classified; R60.0 Localized edema; I87.2 Venous insufficiency (chronic) (peripheral); G89.29 Other chronic pain; G90.09 Other idiopathic peripheral autonomic neuropathy; I10 Essential (primary) hypertension; B96.5 Pseudomonas (aeruginosa) (mallei) (pseudomallei) as the cause of diseases classified elsewhere; M17.12 Unilateral primary osteoarthritis, left knee; K21.9 Gastro-esophageal reflux disease without esophagitis; J45.909 Unspecified asthma, uncomplicated; E78.00 Pure hypercholesterolemia, unspecified | CPT/HCPCS: 87071; 87075; 87186; 87205 ==

== ENCOUNTER 2020-06-16 11:17 | Outpatient (RCR) | payer MEDICARE, OTHER ==
--- NOTE | 2020-05-24 13:45 | Diagnostic Imaging Report ---
1. Left tibia and fibula, 2 views 2. Left ankle, 3 views INDICATION: ^[id number] ^[id number] ^CHRONINC VENOUS HYPERTENSION W/ [facility]LCER Comparison: 11/06/2018. Discussion: Postoperative changes are identified from plate fixation of the distal left fibula and screw fixation of the medial malleolus. Moderate degenerative change of the tibiotalar joint space is noted. Talar dome is intact. Stable plantar calcaneal spur. There is stable diffuse soft tissue swelling about the ankle joint and left lower extremity. No definite new radiographic evidence of osteomyelitis. There is stable lucency along the distal fibular shaft at the level of the fixation. Negative for subcutaneous emphysema. Scattered vascular calcifications are noted. IMPRESSION: 1. No acute bony abnormality. Stable postsurgical changes of the distal fibula and medial malleolus. Stable appearance of osteopenia and lucency of the distal left fibula, likely postoperative in nature. 2. Stable chronic superficial soft tissue swelling. Consider cross-sectional imaging if clinically indicated. Signed by: Remigio Muñoz MD on 05/24/2020 1:41 PM
--- NOTE | 2020-05-24 13:45 | Diagnostic Imaging Report ---
1. Left tibia and fibula, 2 views 2. Left ankle, 3 views INDICATION: ^[id number] ^1250 ^CHRONINC VENOUS HYPERTENSION W/ [facility]LCER Comparison: 11/06/2018. Discussion: Postoperative changes are identified from plate fixation of the distal left fibula and screw fixation of the medial malleolus. Moderate degenerative change of the tibiotalar joint space is noted. Talar dome is intact. Stable plantar calcaneal spur. There is stable diffuse soft tissue swelling about the ankle joint and left lower extremity. No definite new radiographic evidence of osteomyelitis. There is stable lucency along the distal fibular shaft at the level of the fixation. Negative for subcutaneous emphysema. Scattered vascular calcifications are noted. IMPRESSION: 1. No acute bony abnormality. Stable postsurgical changes of the distal fibula and medial malleolus. Stable appearance of osteopenia and lucency of the distal left fibula, likely postoperative in nature. 2. Stable chronic superficial soft tissue swelling. Consider cross-sectional imaging if clinically indicated. Signed by: Remigio Muñoz MD on 05/24/2020 1:41 PM
[2020-06-16] MEDS ORDERED: MINERAL OIL/PETROLAT/GLYCERI 6OZ BTL ONE ×2 (16:30→17:09)
== END 2020-06-17 ==
LOC: WCC 11:17
PROVIDERS: ATTEND Family Medicine
DX: E11.628 Type 2 diabetes mellitus with other skin complications (principal); I87.332 Chronic venous hypertension (idiopathic) with ulcer and inflammation of left lower extremity; I87.312 Chronic venous hypertension (idiopathic) with ulcer of left lower extremity; L97.821 Non-pressure chronic ulcer of other part of left lower leg limited to breakdown of skin; R60.0 Localized edema; G89.29 Other chronic pain; B96.89 Other specified bacterial agents as the cause of diseases classified elsewhere; B95.8 Unspecified staphylococcus as the cause of diseases classified elsewhere; B96.5 Pseudomonas (aeruginosa) (mallei) (pseudomallei) as the cause of diseases classified elsewhere; K21.9 Gastro-esophageal reflux disease without esophagitis; G90.09 Other idiopathic peripheral autonomic neuropathy

== ENCOUNTER → 2020-07-07 | Outpatient (CLI) | payer MEDICARE, OTHER | LOC: CARD 09:03 | PROVIDERS: ATTEND Family Medicine | DX: I87.2 Venous insufficiency (chronic) (peripheral) (principal); L97.229 Non-pressure chronic ulcer of left calf with unspecified severity; I70.202 Unspecified atherosclerosis of native arteries of extremities, left leg | CPT/HCPCS: 93922; 93926 ==

== ENCOUNTER → 2020-07-17 | Outpatient (RCR) | payer MEDICARE, OTHER ==
[~2020-07-17] MED LIST changes: +AMMONIUM LACTATE 12% LOTION 225GM BTL ONE; +COLLAGENASE OINTMENT 30 GM TUBE ONE; +LIDOCAINE VISC 2% SOLN 15 ML UDC ONE; +MUPIROCIN 2% OINT 22 GM TUBE ONE
== END ==
LOC: WCC 06-19 13:38
PROVIDERS: ATTEND Family Medicine
DX: E11.628 Type 2 diabetes mellitus with other skin complications (principal); E11.21 Type 2 diabetes mellitus with diabetic nephropathy; E11.65 Type 2 diabetes mellitus with hyperglycemia; L97.821 Non-pressure chronic ulcer of other part of left lower leg limited to breakdown of skin; I87.332 Chronic venous hypertension (idiopathic) with ulcer and inflammation of left lower extremity; I89.0 Lymphedema, not elsewhere classified; R60.0 Localized edema; L03.818 Cellulitis of other sites; G90.09 Other idiopathic peripheral autonomic neuropathy; B96.89 Other specified bacterial agents as the cause of diseases classified elsewhere; G89.29 Other chronic pain; B96.5 Pseudomonas (aeruginosa) (mallei) (pseudomallei) as the cause of diseases classified elsewhere; I10 Essential (primary) hypertension; J45.909 Unspecified asthma, uncomplicated; E78.00 Pure hypercholesterolemia, unspecified; K21.9 Gastro-esophageal reflux disease without esophagitis
CPT/HCPCS: 36415; 82948

== ENCOUNTER 2020-07-24 16:53 | Outpatient (RCR) | payer MEDICARE, OTHER ==
[2020-08-01] MEDS ORDERED: POTASSIUM CHLO10 ME1 PO (13:56)
[2020-08-01] MEDS ORDERED: TIZANIDINE HCL4 MG PO (13:56)
[2020-08-01] MEDS ORDERED: DOXYCYCLINE HY100 MG PO (13:56)
[2020-08-01] MEDS ORDERED: FLUOXETINE HCL10 MG PO (13:56)
[2020-08-01] MEDS ORDERED: GABAPENTIN300 MG PO (13:56)
[2020-08-01] MEDS ORDERED: PROBIOTIC & AC1 EACH PO (13:56)
[2020-08-01] MEDS ORDERED: ALBUTEROL0.63 MG/3 NEB (13:56)
[2020-08-01] MEDS ORDERED: PRAVACHOL40 MG PO (13:56)
[2020-08-01] MEDS ORDERED: VITAMIN D3 PO (13:56)
[2020-08-01] MEDS ORDERED: FLUTICASONE PRO16 GM (13:56)
[2020-08-01] MEDS ORDERED: PROAIR DIGIHAL90 MCG INH (13:56)
[2020-08-01] MEDS ORDERED: CIPRO500 MG PO (13:56)
[2020-08-01] MEDS ORDERED: GLIMEPIRIDE2 MG PO (13:56)
[2020-08-01] MEDS ORDERED: OMEPRAZOLE40 MG PO (13:56)
[2020-08-01] MEDS ORDERED: TRIFLURIDINE7.5 ML OD (13:56)
[2020-08-01] MEDS ORDERED: [UNRECOGNIZED DRUG - OTHER] (13:56)
[2020-08-01] MEDS ORDERED: LOTEMAX5 ML OS (13:56)
[2020-08-01] MEDS ORDERED: FUROSEMIDE40 MG PO (13:56)
[2020-08-01] MEDS ORDERED: MESALAMINE PO (13:58)
[2020-08-01] MEDS ORDERED: VASOTEC5 MG PO (13:58)
[2020-08-01] MEDS ORDERED: FAMOTIDINE20 MG PO (13:58)
[2020-08-01] MEDS ORDERED: OMEGA 3 1,0001 EACH PO (13:58)
[2020-08-02] MEDS ORDERED: ALPRAZOLAM 0.5 MG TAB ONE (12:29)
[2020-08-02] MEDS ORDERED: DIPHENHYDRAMINE HCL 25 MG CAP ONE (12:29)
== END 2020-08-17 ==
LOC: WCC 16:53
PROVIDERS: ATTEND Family Medicine
DX: E11.628 Type 2 diabetes mellitus with other skin complications (principal); I87.332 Chronic venous hypertension (idiopathic) with ulcer and inflammation of left lower extremity; L97.821 Non-pressure chronic ulcer of other part of left lower leg limited to breakdown of skin; L03.818 Cellulitis of other sites; R60.0 Localized edema; G89.29 Other chronic pain; B96.89 Other specified bacterial agents as the cause of diseases classified elsewhere; B95.8 Unspecified staphylococcus as the cause of diseases classified elsewhere; B96.5 Pseudomonas (aeruginosa) (mallei) (pseudomallei) as the cause of diseases classified elsewhere; I10 Essential (primary) hypertension; K21.9 Gastro-esophageal reflux disease without esophagitis; E78.00 Pure hypercholesterolemia, unspecified; G90.09 Other idiopathic peripheral autonomic neuropathy

== ENCOUNTER → 2020-08-02 | Day surgery (SDC) | payer MEDICARE, OTHER ==
[2020-07-28 11:03] LABS: BASOPHILS % 0.3 % (0.0-1.0); EOSINOPHILS # (AUTO) 0.2 (0.0-0.4); EOSINOPHILS % 2.5 % (0.0-6.0); HEMATOCRIT 38.7 % (34.2-44.1); HEMOGLOBIN 11.7 g/dL (12.0-16.0); LYMPHOCYTES # (AUTO) 2.1 (1.0-3.2); LYMPHOCYTES % 29.7 % (18.0-39.1); MEAN CORPUSCULAR HEMOGLOBIN 26.2 pg (28-32); MEAN CORPUSCULAR HGB CONC 30.2 g/dL (31-35); MEAN CORPUSCULAR VOLUME 86.6 fL (81-99); MONOCYTES # (AUTO) 0.7 (0.2-0.8); MONOCYTES % 9.8 % (4.4-11.3); NEUTROPHILS % 57.1 % (38.7-80.0); PLATELET COUNT 285 x10e3/uL (140-360); RED BLOOD COUNT 4.47 x10e6/uL (3.6-5.1); RED CELL DISTRIBUTION WIDTH 15.5 % (11.7-14.4)
[2020-07-28 11:25] LABS: ALANINE AMINOTRANSFERASE 11 IU/L (0-55); ALBUMIN 3.1 g/dL (3.5-5.0); ALBUMIN/GLOBULIN RATIO 0.6 (0.8-2.0); ALKALINE PHOSPHATASE 111 IU/L (40-150); BLOOD UREA NITROGEN 14 mg/dL (7-26); BUN/CREATININE RATIO 19 (6-25); CALCIUM 9.5 mg/dL (8.4-10.2); CARBON DIOXIDE 31 mmol/L (22-29); CHLORIDE 103 mmol/L (98-107); CREATININE, SERUM 0.75 mg/dL (0.57-1.11); EST GLOMERULAR FILTRATION RATE > 60 ML/MIN (60-); GLUCOSE 145 mg/dL (74-118); SODIUM 140 mmol/L (136-145)
[~2020-08-02] VITALS: Ht 158.8 cm; Wt 124.7 kg
[2020-08-02] VITALS (9 sets, daily range): BP systolic 103–173; BP diastolic 61–95
[~2020-08-02] MED LIST changes: +ALBUTEROL0.63 MG/3 NEB; -AMMONIUM LACTATE 12% LOTION 225GM BTL ONE; +BIVALRIUDIN 250 MG/VIAL VIAL IV ONE; +CIPRO500 MG PO; -COLLAGENASE OINTMENT 30 GM TUBE ONE; +DOXYCYCLINE HY100 MG PO; +FAMOTIDINE20 MG PO; +FENTANYL CITRATE/PF 100MCG/2 ML INJ ONE; +FLUOXETINE HCL10 MG PO; +FLUTICASONE PRO16 GM; +FUROSEMIDE40 MG PO; +GABAPENTIN300 MG PO; +GLIMEPIRIDE2 MG PO; +HEPARIN SOD/SOD CHLORIDE 2,000 ML ONE; +IOPAMIDOL 300MG/ML 100 ML INFUS..BTL IV ONE; +LIDOCAINE HCL 2% LOCAL 20 ML VIAL ONE; -LIDOCAINE VISC 2% SOLN 15 ML UDC ONE; -LIDOCAINE/PRILOCAINE 2.5-2.5% KIT ONE; +LOTEMAX5 ML OS; +MESALAMINE PO; +MIDAZOLAM HCL 2 MG/2 ML VIAL ONE; -MINERAL OIL/PETROLAT/GLYCERI 2OZ CRM ONE; -MINERAL OIL/PETROLAT/GLYCERI 6OZ BTL ONE; -MUPIROCIN 2% OINT 22 GM TUBE ONE; +OMEGA 3 1,0001 EACH PO; +OMEPRAZOLE40 MG PO; +POTASSIUM CHLO10 ME1 PO; +PRAVACHOL40 MG PO; +PROAIR DIGIHAL90 MCG INH; +PROBIOTIC & AC1 EACH PO; +SODIUM CHLORIDE 0.9% 1000ML 1,000 ML ONE; +SODIUM CHLORIDE 0.9% 50ML 0 ML ONE; +TIZANIDINE HCL4 MG PO; +TRIFLURIDINE7.5 ML OD; +VASOTEC5 MG PO; +VITAMIN D3 PO; +[UNRECOGNIZED DRUG - OTHER]
== END | disposition home or self-care (01) ==
LOC: CATH LAB 10:15
PROVIDERS: ATTEND Internal Medicine Interventional Cardiology
DX: I73.9 Peripheral vascular disease, unspecified (principal); I87.2 Venous insufficiency (chronic) (peripheral); J45.909 Unspecified asthma, uncomplicated; I10 Essential (primary) hypertension; E10.10 Type 1 diabetes mellitus with ketoacidosis without coma; E78.00 Pure hypercholesterolemia, unspecified; Z88.6 Allergy status to analgesic agent; Z88.2 Allergy status to sulfonamides; Z88.8 Allergy status to other drugs, medicaments and biological substances; Z01.812 Encounter for preprocedural laboratory examination; Z20.828 Contact with and (suspected) exposure to other viral communicable diseases; Z79.84 Long term (current) use of oral hypoglycemic drugs; Z68.42 Body mass index [BMI] 45.0-49.9, adult; Z86.73 Personal history of transient ischemic attack (TIA), and cerebral infarction without residual deficits; Z82.49 Family history of ischemic heart disease and other diseases of the circulatory system; Z82.3 Family history of stroke; Z83.3 Family history of diabetes mellitus
CPT/HCPCS: 36247; 36415; 75625; 75710; 76937; 80053; 85025; C1769 ×2; J2001; J2250; J3010; J7030; Q9967; U0002; 99152; J0583

== ENCOUNTER → 2020-08-15 | Outpatient (CLI) | payer MEDICARE, OTHER ==
[~2020-08-15] MED LIST changes: -BIVALRIUDIN 250 MG/VIAL VIAL IV ONE; -FENTANYL CITRATE/PF 100MCG/2 ML INJ ONE; -HEPARIN SOD/SOD CHLORIDE 2,000 ML ONE; -IOPAMIDOL 300MG/ML 100 ML INFUS..BTL IV ONE; +IOPAMIDOL 370 MG/ML 200 ML INFUS..BTL INJ ONE; -LIDOCAINE HCL 2% LOCAL 20 ML VIAL ONE; -MIDAZOLAM HCL 2 MG/2 ML VIAL ONE; +SODIUM CHLORIDE 0.9% 100 ML ONE; -SODIUM CHLORIDE 0.9% 1000ML 1,000 ML ONE; -SODIUM CHLORIDE 0.9% 50ML 0 ML ONE
[2020-08-15 10:37] LABS: BLOOD UREA NITROGEN 16 mg/dL (7-26); BUN/CREATININE RATIO 22 (6-25); CREATININE, SERUM 0.72 mg/dL (0.57-1.11); EST GLOMERULAR FILTRATION RATE > 60 ML/MIN (60-)
== END ==
LOC: CT 09:49
PROVIDERS: ATTEND Internal Medicine Interventional Cardiology
DX: I77.2 Rupture of artery (principal); K42.9 Umbilical hernia without obstruction or gangrene
CPT/HCPCS: 36415; 74174; 82565; 84520; J7050; Q9967

== ENCOUNTER → 2020-08-17 | Outpatient (RCR) | payer MEDICARE, OTHER ==
[~2020-08-17] MED LIST changes: +COLLAGENASE OINTMENT 30 GM TUBE ONE; -IOPAMIDOL 370 MG/ML 200 ML INFUS..BTL INJ ONE; +LIDOCAINE VISC 2% SOLN 15 ML UDC ONE; +LIDOCAINE/PRILOCAINE 2.5-2.5% KIT ONE; +MINERAL OIL/PETROLAT/GLYCERI 2OZ CRM ONE; +MINERAL OIL/PETROLAT/GLYCERI 6OZ BTL ONE; +MUPIROCIN 2% OINT 22 GM TUBE ONE; -SODIUM CHLORIDE 0.9% 100 ML ONE
== END ==
LOC: WCC 07-19 10:46
PROVIDERS: ATTEND Family Medicine
DX: E11.21 Type 2 diabetes mellitus with diabetic nephropathy (principal); E11.65 Type 2 diabetes mellitus with hyperglycemia; E11.628 Type 2 diabetes mellitus with other skin complications; I87.332 Chronic venous hypertension (idiopathic) with ulcer and inflammation of left lower extremity; L97.821 Non-pressure chronic ulcer of other part of left lower leg limited to breakdown of skin; L03.818 Cellulitis of other sites; R60.0 Localized edema; I87.2 Venous insufficiency (chronic) (peripheral); I89.0 Lymphedema, not elsewhere classified; G89.29 Other chronic pain; G90.09 Other idiopathic peripheral autonomic neuropathy; B95.8 Unspecified staphylococcus as the cause of diseases classified elsewhere; I10 Essential (primary) hypertension; B96.5 Pseudomonas (aeruginosa) (mallei) (pseudomallei) as the cause of diseases classified elsewhere; B96.89 Other specified bacterial agents as the cause of diseases classified elsewhere; E78.00 Pure hypercholesterolemia, unspecified; J45.909 Unspecified asthma, uncomplicated; K21.9 Gastro-esophageal reflux disease without esophagitis; M17.12 Unilateral primary osteoarthritis, left knee

== ENCOUNTER 2020-08-30 13:29 | Outpatient (RCR) | payer MEDICARE, OTHER ==
[~2020-08-30 13:29] MED LIST changes: -COLLAGENASE OINTMENT 30 GM TUBE ONE; -MUPIROCIN 2% OINT 22 GM TUBE ONE
[2020-08-30] MEDS ORDERED: LIDOCAINE VISC 2% SOLN 15 ML UDC ONE (14:13)
[2020-08-30] MEDS ORDERED: MINERAL OIL/PETROLAT/GLYCERI 2OZ CRM ONE (14:13)
[2020-09-01] MEDS ORDERED: MINERAL OIL/PETROLAT/GLYCERI 2OZ CRM ONE (16:28)
== END 2020-09-17 ==
LOC: WCC 13:29
PROVIDERS: ATTEND Family Medicine
DX: E11.21 Type 2 diabetes mellitus with diabetic nephropathy (principal); E11.65 Type 2 diabetes mellitus with hyperglycemia; E11.628 Type 2 diabetes mellitus with other skin complications; L97.821 Non-pressure chronic ulcer of other part of left lower leg limited to breakdown of skin; I87.332 Chronic venous hypertension (idiopathic) with ulcer and inflammation of left lower extremity; I87.2 Venous insufficiency (chronic) (peripheral); L03.818 Cellulitis of other sites; R60.0 Localized edema; I89.0 Lymphedema, not elsewhere classified; G89.29 Other chronic pain; G90.09 Other idiopathic peripheral autonomic neuropathy; M17.12 Unilateral primary osteoarthritis, left knee; I10 Essential (primary) hypertension; B95.8 Unspecified staphylococcus as the cause of diseases classified elsewhere; B96.5 Pseudomonas (aeruginosa) (mallei) (pseudomallei) as the cause of diseases classified elsewhere; B96.89 Other specified bacterial agents as the cause of diseases classified elsewhere; E78.00 Pure hypercholesterolemia, unspecified; J45.909 Unspecified asthma, uncomplicated; K21.9 Gastro-esophageal reflux disease without esophagitis
CPT/HCPCS: 36415; 82948; 87071; 87205; 88305

== ENCOUNTER 2020-10-11 15:56 | Outpatient (RCR) | payer MEDICARE, OTHER ==
[~2020-10-11 15:56] MED LIST changes: +LIDOCAINE VISC 2% SOLN 15 ML UDC ONE; +MINERAL OIL/PETROLAT/GLYCERI 2OZ CRM ONE; +MINERAL OIL/PETROLAT/GLYCERI 6OZ BTL ONE
== END 2020-10-15 ==
LOC: WCC 15:56
PROVIDERS: ATTEND Family Medicine
DX: E11.628 Type 2 diabetes mellitus with other skin complications (principal); E11.21 Type 2 diabetes mellitus with diabetic nephropathy; E11.65 Type 2 diabetes mellitus with hyperglycemia; L97.821 Non-pressure chronic ulcer of other part of left lower leg limited to breakdown of skin; L03.818 Cellulitis of other sites; I87.332 Chronic venous hypertension (idiopathic) with ulcer and inflammation of left lower extremity; R60.0 Localized edema; I89.0 Lymphedema, not elsewhere classified; G89.29 Other chronic pain; I10 Essential (primary) hypertension; B96.89 Other specified bacterial agents as the cause of diseases classified elsewhere; B95.8 Unspecified staphylococcus as the cause of diseases classified elsewhere; B96.5 Pseudomonas (aeruginosa) (mallei) (pseudomallei) as the cause of diseases classified elsewhere; K21.9 Gastro-esophageal reflux disease without esophagitis; E78.00 Pure hypercholesterolemia, unspecified; G90.09 Other idiopathic peripheral autonomic neuropathy; J45.909 Unspecified asthma, uncomplicated; M17.12 Unilateral primary osteoarthritis, left knee
CPT/HCPCS: 87071; 87075; 87186; 87205

== ENCOUNTER → 2020-10-11 | Outpatient (CLI) | payer MEDICARE, OTHER ==
[~2020-10-11] MED LIST changes: -LIDOCAINE VISC 2% SOLN 15 ML UDC ONE; -LIDOCAINE/PRILOCAINE 2.5-2.5% KIT ONE; -MINERAL OIL/PETROLAT/GLYCERI 2OZ CRM ONE; -MINERAL OIL/PETROLAT/GLYCERI 6OZ BTL ONE
[2020-10-11 13:15] LABS: HEMATOCRIT 34.6 % (34.2-44.1); HEMOGLOBIN 10.6 g/dL (12.0-16.0)
[2020-10-11 13:32] LABS: BLOOD UREA NITROGEN 17 mg/dL (7-26); BUN/CREATININE RATIO 20 (6-25); CREATININE, SERUM 0.86 mg/dL (0.57-1.11); EST GLOMERULAR FILTRATION RATE > 60 ML/MIN (60-)
== END ==
LOC: DX 12:46
PROVIDERS: ATTEND Internal Medicine Infectious Disease
DX: Z45.2 Encounter for adjustment and management of vascular access device (principal)
CPT/HCPCS: 36415; 36569; 71045; 82565; 84520; 85014; 85018; 85049

== ENCOUNTER → 2020-11-15 | Outpatient (RCR) | payer MEDICARE, OTHER | LOC: WCC 10-16 15:20 | PROVIDERS: ATTEND Family Medicine | DX: E11.628 Type 2 diabetes mellitus with other skin complications (principal); I87.332 Chronic venous hypertension (idiopathic) with ulcer and inflammation of left lower extremity; L97.821 Non-pressure chronic ulcer of other part of left lower leg limited to breakdown of skin; I87.2 Venous insufficiency (chronic) (peripheral); I89.0 Lymphedema, not elsewhere classified; R60.0 Localized edema; G89.29 Other chronic pain; I10 Essential (primary) hypertension; G90.09 Other idiopathic peripheral autonomic neuropathy; M17.12 Unilateral primary osteoarthritis, left knee; B96.89 Other specified bacterial agents as the cause of diseases classified elsewhere; K21.9 Gastro-esophageal reflux disease without esophagitis; J45.909 Unspecified asthma, uncomplicated; E78.00 Pure hypercholesterolemia, unspecified ==

== ENCOUNTER → 2020-12-15 | Outpatient (RCR) | payer MEDICARE, OTHER | LOC: WCC 11-17 16:11 | PROVIDERS: ATTEND Plastic Surgery | DX: E11.21 Type 2 diabetes mellitus with diabetic nephropathy (principal); E11.65 Type 2 diabetes mellitus with hyperglycemia; E11.628 Type 2 diabetes mellitus with other skin complications; I87.332 Chronic venous hypertension (idiopathic) with ulcer and inflammation of left lower extremity; L97.821 Non-pressure chronic ulcer of other part of left lower leg limited to breakdown of skin; I89.0 Lymphedema, not elsewhere classified; I87.2 Venous insufficiency (chronic) (peripheral); R60.0 Localized edema; G90.09 Other idiopathic peripheral autonomic neuropathy; G89.29 Other chronic pain; I10 Essential (primary) hypertension; B96.89 Other specified bacterial agents as the cause of diseases classified elsewhere; E78.00 Pure hypercholesterolemia, unspecified; J45.909 Unspecified asthma, uncomplicated; K21.9 Gastro-esophageal reflux disease without esophagitis; M17.12 Unilateral primary osteoarthritis, left knee ==

== ENCOUNTER 2021-01-12 09:59 | Outpatient (RCR) | payer MEDICARE, OTHER ==
[~2021-01-12 09:59] MED LIST changes: -MINERAL OIL/PETROLAT/GLYCERI 2OZ CRM ONE; +TRIAMCINOLONE ACET 0.1% CREAM 15 GM TUBE ONE
[2021-01-12] MEDS ORDERED: LIDOCAINE VISC 2% SOLN 15 ML UDC ONE (13:53)
[2021-01-12] MEDS ORDERED: MINERAL OIL/PETROLAT/GLYCERI 6OZ BTL ONE (13:53)
== END 2021-01-15 ==
LOC: WCC 09:59
PROVIDERS: ATTEND Family Medicine
DX: E11.628 Type 2 diabetes mellitus with other skin complications (principal); E11.21 Type 2 diabetes mellitus with diabetic nephropathy; E11.65 Type 2 diabetes mellitus with hyperglycemia; I87.332 Chronic venous hypertension (idiopathic) with ulcer and inflammation of left lower extremity; L97.821 Non-pressure chronic ulcer of other part of left lower leg limited to breakdown of skin; I87.2 Venous insufficiency (chronic) (peripheral); I89.0 Lymphedema, not elsewhere classified; R60.0 Localized edema; G90.09 Other idiopathic peripheral autonomic neuropathy; G89.29 Other chronic pain; M17.12 Unilateral primary osteoarthritis, left knee; I10 Essential (primary) hypertension; K21.9 Gastro-esophageal reflux disease without esophagitis; J45.909 Unspecified asthma, uncomplicated; E78.00 Pure hypercholesterolemia, unspecified
CPT/HCPCS: 36415; 82948

== ENCOUNTER → 2021-02-14 | Outpatient (RCR) | payer MEDICARE, OTHER | LOC: WCC 01-17 09:25 | PROVIDERS: ATTEND Family Medicine | DX: E11.21 Type 2 diabetes mellitus with diabetic nephropathy (principal); E11.65 Type 2 diabetes mellitus with hyperglycemia; E11.628 Type 2 diabetes mellitus with other skin complications; I87.332 Chronic venous hypertension (idiopathic) with ulcer and inflammation of left lower extremity; L97.821 Non-pressure chronic ulcer of other part of left lower leg limited to breakdown of skin; I87.2 Venous insufficiency (chronic) (peripheral); G90.09 Other idiopathic peripheral autonomic neuropathy; R60.0 Localized edema; I89.0 Lymphedema, not elsewhere classified; G89.29 Other chronic pain; M17.12 Unilateral primary osteoarthritis, left knee; I10 Essential (primary) hypertension; E78.00 Pure hypercholesterolemia, unspecified; J45.909 Unspecified asthma, uncomplicated; K21.9 Gastro-esophageal reflux disease without esophagitis ==

== ENCOUNTER 2021-03-16 09:35 | Outpatient (RCR) | payer MEDICARE, OTHER ==
[~2021-03-16 09:35] MED LIST changes: +MINERAL OIL/PETROLAT/GLYCERI 2OZ CRM ONE; -TRIAMCINOLONE ACET 0.1% CREAM 15 GM TUBE ONE; +TRYPSIN/BALSAM PERU/CASTOR OIL ONE
== END 2021-03-17 ==
LOC: WCC 09:35
PROVIDERS: ATTEND Family Medicine
DX: E11.628 Type 2 diabetes mellitus with other skin complications (principal); E11.21 Type 2 diabetes mellitus with diabetic nephropathy; E11.65 Type 2 diabetes mellitus with hyperglycemia; I87.332 Chronic venous hypertension (idiopathic) with ulcer and inflammation of left lower extremity; L97.821 Non-pressure chronic ulcer of other part of left lower leg limited to breakdown of skin; I87.2 Venous insufficiency (chronic) (peripheral); I89.0 Lymphedema, not elsewhere classified; G90.09 Other idiopathic peripheral autonomic neuropathy; R60.0 Localized edema; G89.29 Other chronic pain; I10 Essential (primary) hypertension; M17.12 Unilateral primary osteoarthritis, left knee; K21.9 Gastro-esophageal reflux disease without esophagitis; J45.909 Unspecified asthma, uncomplicated; E78.00 Pure hypercholesterolemia, unspecified
CPT/HCPCS: 87071; 87075; 87186; 87205

== ENCOUNTER 2021-04-16 11:09 | Outpatient (RCR) | payer MEDICARE, OTHER ==
[~2021-04-16 11:09] MED LIST changes: -TRYPSIN/BALSAM PERU/CASTOR OIL ONE
== END 2021-04-17 ==
LOC: WCC 11:09
PROVIDERS: ATTEND Family Medicine
DX: E11.628 Type 2 diabetes mellitus with other skin complications (principal); I87.311 Chronic venous hypertension (idiopathic) with ulcer of right lower extremity; I87.332 Chronic venous hypertension (idiopathic) with ulcer and inflammation of left lower extremity; L97.811 Non-pressure chronic ulcer of other part of right lower leg limited to breakdown of skin; L97.821 Non-pressure chronic ulcer of other part of left lower leg limited to breakdown of skin; R60.0 Localized edema; I87.2 Venous insufficiency (chronic) (peripheral); I89.0 Lymphedema, not elsewhere classified; G89.29 Other chronic pain; M17.12 Unilateral primary osteoarthritis, left knee; K21.9 Gastro-esophageal reflux disease without esophagitis; J45.909 Unspecified asthma, uncomplicated; I10 Essential (primary) hypertension; G90.09 Other idiopathic peripheral autonomic neuropathy; E78.00 Pure hypercholesterolemia, unspecified

== ENCOUNTER 2021-05-16 09:27 | Outpatient (RCR) | payer MEDICARE, OTHER ==
[~2021-05-16 09:27] MED LIST changes: -LIDOCAINE VISC 2% SOLN 15 ML UDC ONE; -MINERAL OIL/PETROLAT/GLYCERI 2OZ CRM ONE; -MINERAL OIL/PETROLAT/GLYCERI 6OZ BTL ONE
== END 2021-05-17 ==
LOC: WCC 09:27
PROVIDERS: ATTEND Family Medicine
DX: E11.628 Type 2 diabetes mellitus with other skin complications (principal); E11.21 Type 2 diabetes mellitus with diabetic nephropathy; E11.65 Type 2 diabetes mellitus with hyperglycemia; I87.332 Chronic venous hypertension (idiopathic) with ulcer and inflammation of left lower extremity; L97.821 Non-pressure chronic ulcer of other part of left lower leg limited to breakdown of skin; I87.2 Venous insufficiency (chronic) (peripheral); I89.0 Lymphedema, not elsewhere classified; G90.09 Other idiopathic peripheral autonomic neuropathy; R60.0 Localized edema; G89.29 Other chronic pain; I10 Essential (primary) hypertension; M17.12 Unilateral primary osteoarthritis, left knee; K21.9 Gastro-esophageal reflux disease without esophagitis; J45.909 Unspecified asthma, uncomplicated; E78.00 Pure hypercholesterolemia, unspecified; B96.89 Other specified bacterial agents as the cause of diseases classified elsewhere

== ENCOUNTER → 2021-05-30 | Emergency (ER) | payer MEDICARE, OTHER ==
[~2021-05-30] VITALS: Ht 157.5 cm; Wt 117.9 kg
[~2021-05-30] MED LIST changes: +CEFTRIAXONE 1 GM VIAL IV ONE; +CEFTRIAXONE 1 GM in SODIUM CHLORIDE 0.9% 50ML 50 ML IV ONE; +DOXYCYCLINE HY100 M3 PO
[2021-05-30 15:25] LABS: BASOPHILS % 0.5 % (0.0-1.0); EOSINOPHILS # (AUTO) 0.2 (0.0-0.4); EOSINOPHILS % 2.4 % (0.0-6.0); HEMATOCRIT 36.5 % (34.2-44.1); HEMOGLOBIN 11.3 g/dL (12.0-16.0); LYMPHOCYTES # (AUTO) 2.1 (1.0-3.2); LYMPHOCYTES % 33.1 % (18.0-39.1); MEAN CORPUSCULAR HEMOGLOBIN 26.8 pg (28-32); MEAN CORPUSCULAR VOLUME 86.7 fL (81-99); MONOCYTES # (AUTO) 0.6 (0.2-0.8); MONOCYTES % 9.6 % (4.4-11.3); NEUTROPHILS # (AUTO) 3.4 (2.1-6.9); NEUTROPHILS % 53.9 % (38.7-80.0); PLATELET COUNT 261 x10e3/uL (140-360); RED BLOOD COUNT 4.21 x10e6/uL (3.6-5.1); RED CELL DISTRIBUTION WIDTH 15.9 % (11.7-14.4)
[2021-05-30 15:43] LABS: ALBUMIN 3.2 g/dL (3.5-5.0); ALBUMIN/GLOBULIN RATIO 0.7 (0.8-2.0); ANION GAP 15.3 mmol/L (8-16); CALCIUM 9.2 mg/dL (8.4-10.2); CREATININE, SERUM 0.92 mg/dL (0.57-1.11); POTASSIUM 4.3 mmol/L (3.5-5.1)
== END | disposition home or self-care (01) ==
LOC: ER 14:56
DX: R07.9 Chest pain, unspecified (principal); I10 Essential (primary) hypertension; E11.65 Type 2 diabetes mellitus with hyperglycemia; K21.9 Gastro-esophageal reflux disease without esophagitis; J45.909 Unspecified asthma, uncomplicated; R94.31 Abnormal electrocardiogram [ECG] [EKG]; Z86.73 Personal history of transient ischemic attack (TIA), and cerebral infarction without residual deficits; Z86.79 Personal history of other diseases of the circulatory system
CPT/HCPCS: 36415; 71045; 80053; 83605; 83690; 84484; 85025; 87040; 93005; 99284; J0696

== ENCOUNTER 2021-06-15 10:20 | Outpatient (RCR) | payer MEDICARE, OTHER ==
[~2021-06-15 10:20] MED LIST changes: +CEFTRIAXONE 1 GM VIAL IM ONE; -CEFTRIAXONE 1 GM VIAL IV ONE; +CEFTRIAXONE 1 GM VIAL ONE; -CEFTRIAXONE 1 GM in SODIUM CHLORIDE 0.9% 50ML 50 ML IV ONE; +LIDOCAINE HCL 2% LOCAL 20 ML VIAL ONE; +LIDOCAINE VISC 2% SOLN 15 ML UDC ONE; +MINERAL OIL/PETROLAT/GLYCERI 6OZ BTL ONE; +MUPIROCIN 2% OINT 22 GM TUBE ONE
== END 2021-06-17 ==
LOC: WCC 10:20
PROVIDERS: ATTEND Internal Medicine Infectious Disease
DX: E11.628 Type 2 diabetes mellitus with other skin complications (principal); E11.21 Type 2 diabetes mellitus with diabetic nephropathy; E11.65 Type 2 diabetes mellitus with hyperglycemia; I87.312 Chronic venous hypertension (idiopathic) with ulcer of left lower extremity; I87.332 Chronic venous hypertension (idiopathic) with ulcer and inflammation of left lower extremity; L97.821 Non-pressure chronic ulcer of other part of left lower leg limited to breakdown of skin; I87.2 Venous insufficiency (chronic) (peripheral); I89.0 Lymphedema, not elsewhere classified; R60.0 Localized edema; G89.29 Other chronic pain; I10 Essential (primary) hypertension; G90.09 Other idiopathic peripheral autonomic neuropathy; M17.12 Unilateral primary osteoarthritis, left knee; K21.9 Gastro-esophageal reflux disease without esophagitis; J45.909 Unspecified asthma, uncomplicated; E78.00 Pure hypercholesterolemia, unspecified
CPT/HCPCS: 11042 ×3; 29581 ×14; 87071; 87075; 87186; 87205; 96372 ×3; 99213 ×14; J0696 ×2; J2001

== ENCOUNTER → 2021-06-19 | Outpatient (CLI) | payer MEDICARE, OTHER ==
[~2021-06-19] MED LIST changes: -CEFTRIAXONE 1 GM VIAL IM ONE; -CEFTRIAXONE 1 GM VIAL ONE; -LIDOCAINE HCL 2% LOCAL 20 ML VIAL ONE; -LIDOCAINE VISC 2% SOLN 15 ML UDC ONE; -MINERAL OIL/PETROLAT/GLYCERI 6OZ BTL ONE; -MUPIROCIN 2% OINT 22 GM TUBE ONE
== END ==
LOC: US 11:08
PROVIDERS: ATTEND Family Medicine
DX: L03.116 Cellulitis of left lower limb (principal); R60.0 Localized edema
CPT/HCPCS: 76882

== ENCOUNTER → 2021-07-10 | Outpatient (CLI) | payer MEDICARE, OTHER | LOC: US 09:48 | PROVIDERS: ATTEND Family Medicine | DX: R60.0 Localized edema (principal) | CPT/HCPCS: 76882 ==

== ENCOUNTER 2021-07-16 14:49 | Outpatient (RCR) | payer MEDICARE, OTHER ==
[~2021-07-16 14:49] MED LIST changes: +LIDOCAINE VISC 2% SOLN 15 ML UDC ONE; +MINERAL OIL/PETROLAT/GLYCERI 2OZ CRM ONE; +MINERAL OIL/PETROLAT/GLYCERI 6OZ BTL ONE; +MUPIROCIN 2% OINT 22 GM TUBE ONE; +TRYPSIN/BALSAM PERU/CASTOR OIL ONE
== END 2021-07-17 ==
LOC: WCC 14:49
PROVIDERS: ATTEND Family Medicine
DX: E11.628 Type 2 diabetes mellitus with other skin complications (principal); E11.21 Type 2 diabetes mellitus with diabetic nephropathy; E11.65 Type 2 diabetes mellitus with hyperglycemia; I87.332 Chronic venous hypertension (idiopathic) with ulcer and inflammation of left lower extremity; L97.821 Non-pressure chronic ulcer of other part of left lower leg limited to breakdown of skin; L03.116 Cellulitis of left lower limb; I87.2 Venous insufficiency (chronic) (peripheral); I89.0 Lymphedema, not elsewhere classified; R60.0 Localized edema; G90.09 Other idiopathic peripheral autonomic neuropathy; G89.29 Other chronic pain; I10 Essential (primary) hypertension; M17.12 Unilateral primary osteoarthritis, left knee; K21.9 Gastro-esophageal reflux disease without esophagitis; B96.89 Other specified bacterial agents as the cause of diseases classified elsewhere; J45.909 Unspecified asthma, uncomplicated; E78.00 Pure hypercholesterolemia, unspecified
CPT/HCPCS: 87071; 87075; 87186; 87205; 88304

== ENCOUNTER 2021-08-08 11:51 | Outpatient (RCR) | payer MEDICARE, OTHER ==
[~2021-08-08 11:51] MED LIST changes: -MINERAL OIL/PETROLAT/GLYCERI 2OZ CRM ONE; -TRYPSIN/BALSAM PERU/CASTOR OIL ONE
[2021-08-08] MEDS ORDERED: MINERAL OIL/PETROLAT/GLYCERI 6OZ BTL ONE (12:41)
[2021-08-08] MEDS ORDERED: MUPIROCIN 2% OINT 22 GM TUBE ONE (12:41)
== END 2021-08-17 ==
LOC: WCC 11:51
PROVIDERS: ATTEND Family Medicine
DX: E11.21 Type 2 diabetes mellitus with diabetic nephropathy (principal); E11.65 Type 2 diabetes mellitus with hyperglycemia; E11.628 Type 2 diabetes mellitus with other skin complications; I87.332 Chronic venous hypertension (idiopathic) with ulcer and inflammation of left lower extremity; L97.821 Non-pressure chronic ulcer of other part of left lower leg limited to breakdown of skin; I87.2 Venous insufficiency (chronic) (peripheral); I89.0 Lymphedema, not elsewhere classified; R60.0 Localized edema; G90.09 Other idiopathic peripheral autonomic neuropathy; G89.29 Other chronic pain; I10 Essential (primary) hypertension; B96.5 Pseudomonas (aeruginosa) (mallei) (pseudomallei) as the cause of diseases classified elsewhere; E78.00 Pure hypercholesterolemia, unspecified; M17.12 Unilateral primary osteoarthritis, left knee; J45.909 Unspecified asthma, uncomplicated; K21.9 Gastro-esophageal reflux disease without esophagitis
CPT/HCPCS: 36415; 82948

== ENCOUNTER → 2021-09-17 | Outpatient (RCR) | payer MEDICARE, OTHER ==
[~2021-09-17] MED LIST changes: +MINERAL OIL/PETROLAT/GLYCERI 2OZ CRM ONE; +TRYPSIN/BALSAM PERU/CASTOR OIL ONE
== END ==
LOC: WCC 08-22 11:01
PROVIDERS: ATTEND Family Medicine
DX: E11.21 Type 2 diabetes mellitus with diabetic nephropathy (principal); E11.65 Type 2 diabetes mellitus with hyperglycemia; E11.628 Type 2 diabetes mellitus with other skin complications; I87.312 Chronic venous hypertension (idiopathic) with ulcer of left lower extremity; I87.332 Chronic venous hypertension (idiopathic) with ulcer and inflammation of left lower extremity; L97.821 Non-pressure chronic ulcer of other part of left lower leg limited to breakdown of skin; I87.2 Venous insufficiency (chronic) (peripheral); I89.0 Lymphedema, not elsewhere classified; R60.0 Localized edema; M17.12 Unilateral primary osteoarthritis, left knee; G90.09 Other idiopathic peripheral autonomic neuropathy; G89.29 Other chronic pain; I10 Essential (primary) hypertension; E78.00 Pure hypercholesterolemia, unspecified; J45.909 Unspecified asthma, uncomplicated; K21.9 Gastro-esophageal reflux disease without esophagitis

== ENCOUNTER 2021-10-05 17:19 | Emergency (ER) | payer MEDICARE, OTHER ==
[~2021-10-05] VITALS: Ht 157.5 cm; Wt 123.4 kg
[~2021-10-05 17:19] MED LIST changes: -LIDOCAINE VISC 2% SOLN 15 ML UDC ONE; -MINERAL OIL/PETROLAT/GLYCERI 2OZ CRM ONE; -MINERAL OIL/PETROLAT/GLYCERI 6OZ BTL ONE; -MUPIROCIN 2% OINT 22 GM TUBE ONE; -TRYPSIN/BALSAM PERU/CASTOR OIL ONE
[2021-10-05] MEDS ORDERED: IBUPROFEN 400 MG TAB PO ONE (18:15)
[2021-10-05 20:15] VITALS: BP 143/55
== END 2021-10-05 20:18 | disposition home or self-care (01) ==
LOC: ER 17:32
DX: M25.562 Pain in left knee (principal); I10 Essential (primary) hypertension; E11.9 Type 2 diabetes mellitus without complications; K21.9 Gastro-esophageal reflux disease without esophagitis; J45.909 Unspecified asthma, uncomplicated; E66.9 Obesity, unspecified; Z86.73 Personal history of transient ischemic attack (TIA), and cerebral infarction without residual deficits; Z86.79 Personal history of other diseases of the circulatory system
CPT/HCPCS: 99283

== ENCOUNTER → 2021-10-15 | Outpatient (RCR) | payer MEDICARE, OTHER ==
[~2021-10-15] MED LIST changes: +LIDOCAINE VISC 2% SOLN 15 ML UDC ONE; +MINERAL OIL/PETROLAT/GLYCERI 2OZ CRM ONE; +MINERAL OIL/PETROLAT/GLYCERI 6OZ BTL ONE; +MUPIROCIN 2% OINT 22 GM TUBE ONE
== END ==
LOC: WCC 09-19 10:42
PROVIDERS: ATTEND Family Medicine
DX: E11.21 Type 2 diabetes mellitus with diabetic nephropathy (principal); E11.65 Type 2 diabetes mellitus with hyperglycemia; E11.628 Type 2 diabetes mellitus with other skin complications; I87.312 Chronic venous hypertension (idiopathic) with ulcer of left lower extremity; I87.332 Chronic venous hypertension (idiopathic) with ulcer and inflammation of left lower extremity; L97.821 Non-pressure chronic ulcer of other part of left lower leg limited to breakdown of skin; I87.2 Venous insufficiency (chronic) (peripheral); R60.0 Localized edema; I89.0 Lymphedema, not elsewhere classified; G89.29 Other chronic pain; I10 Essential (primary) hypertension; K21.9 Gastro-esophageal reflux disease without esophagitis; E78.00 Pure hypercholesterolemia, unspecified; J45.909 Unspecified asthma, uncomplicated; G90.09 Other idiopathic peripheral autonomic neuropathy; M17.12 Unilateral primary osteoarthritis, left knee
CPT/HCPCS: 96372

== ENCOUNTER 2021-11-12 14:39 | Outpatient (RCR) | payer MEDICARE, OTHER ==
[2021-11-07 12:18] LABS: BASOPHILS % 0.5 % (0.0-1.0); EOSINOPHILS # (AUTO) 0.3 (0.0-0.4); EOSINOPHILS % 4.4 % (0.0-6.0); HEMOGLOBIN 12.4 g/dL (12.0-16.0); LYMPHOCYTES # (AUTO) 1.6 (1.0-3.2); LYMPHOCYTES % 28.4 % (18.0-39.1); MEAN CORPUSCULAR HEMOGLOBIN 28.2 pg (28-32); MEAN CORPUSCULAR HGB CONC 31.8 g/dL (31-35); MEAN CORPUSCULAR VOLUME 88.8 fL (81-99); MONOCYTES # (AUTO) 0.7 (0.2-0.8); MONOCYTES % 12.1 % (4.4-11.3); NEUTROPHILS % 54.1 % (38.7-80.0); PLATELET COUNT 181 x10e3/uL (140-360); RED BLOOD COUNT 4.39 x10e6/uL (3.6-5.1); RED CELL DISTRIBUTION WIDTH 16.2 % (11.7-14.4)
[2021-11-07 13:00] LABS: ALBUMIN 2.9 g/dL (3.5-5.0); ALBUMIN/GLOBULIN RATIO 0.6 (0.8-2.0); ANION GAP 12.5 mmol/L (8-16); CALCIUM 9.1 mg/dL (8.4-10.2); CREATININE, SERUM 0.87 mg/dL (0.57-1.11); POTASSIUM 4.5 mmol/L (3.5-5.1)
[~2021-11-12 14:39] MED LIST changes: -MINERAL OIL/PETROLAT/GLYCERI 2OZ CRM ONE; -MUPIROCIN 2% OINT 22 GM TUBE ONE
== END 2021-11-15 ==
LOC: WCC 14:39
PROVIDERS: ATTEND Family Medicine
DX: E11.21 Type 2 diabetes mellitus with diabetic nephropathy (principal); E11.65 Type 2 diabetes mellitus with hyperglycemia; E11.628 Type 2 diabetes mellitus with other skin complications; L97.821 Non-pressure chronic ulcer of other part of left lower leg limited to breakdown of skin; I87.332 Chronic venous hypertension (idiopathic) with ulcer and inflammation of left lower extremity; I87.312 Chronic venous hypertension (idiopathic) with ulcer of left lower extremity; I87.2 Venous insufficiency (chronic) (peripheral); I89.0 Lymphedema, not elsewhere classified; R60.0 Localized edema; G89.29 Other chronic pain; I10 Essential (primary) hypertension; E78.00 Pure hypercholesterolemia, unspecified; G90.09 Other idiopathic peripheral autonomic neuropathy; J45.909 Unspecified asthma, uncomplicated; K21.9 Gastro-esophageal reflux disease without esophagitis; M17.12 Unilateral primary osteoarthritis, left knee
CPT/HCPCS: 36415; 80053; 83036; 84134; 85025; 87071; 87075; 87186; 87205; 96372

== ENCOUNTER 2021-12-14 15:49 | Outpatient (RCR) | payer MEDICARE, OTHER ==
[~2021-12-14 15:49] MED LIST changes: +GENTAMICIN SULFATE 15 GM CR TP ONE; +LIDOCAINE/PRILOCAINE 2.5-2.5% KIT ONE; +MINERAL OIL/PETROLAT/GLYCERI 2OZ CRM ONE; +MUPIROCIN 2% OINT 22 GM TUBE ONE; +TRYPSIN/BALSAM PERU/CASTOR OIL ONE
== END 2021-12-15 ==
LOC: WCC 15:49
PROVIDERS: ATTEND Family Medicine
DX: E11.21 Type 2 diabetes mellitus with diabetic nephropathy (principal); E11.65 Type 2 diabetes mellitus with hyperglycemia; E11.628 Type 2 diabetes mellitus with other skin complications; I87.311 Chronic venous hypertension (idiopathic) with ulcer of right lower extremity; I87.332 Chronic venous hypertension (idiopathic) with ulcer and inflammation of left lower extremity; L97.311 Non-pressure chronic ulcer of right ankle limited to breakdown of skin; L97.821 Non-pressure chronic ulcer of other part of left lower leg limited to breakdown of skin; I87.2 Venous insufficiency (chronic) (peripheral); I89.0 Lymphedema, not elsewhere classified; R60.0 Localized edema; G89.29 Other chronic pain; I10 Essential (primary) hypertension; E78.00 Pure hypercholesterolemia, unspecified; G90.09 Other idiopathic peripheral autonomic neuropathy; B96.5 Pseudomonas (aeruginosa) (mallei) (pseudomallei) as the cause of diseases classified elsewhere; K21.9 Gastro-esophageal reflux disease without esophagitis; J45.909 Unspecified asthma, uncomplicated; M17.12 Unilateral primary osteoarthritis, left knee
CPT/HCPCS: 87071; 87075; 87186; 87205

== ENCOUNTER → 2022-01-15 | Outpatient (RCR) | payer MEDICARE, OTHER ==
[~2022-01-15] MED LIST changes: -LIDOCAINE/PRILOCAINE 2.5-2.5% KIT ONE; -MINERAL OIL/PETROLAT/GLYCERI 2OZ CRM ONE; -MUPIROCIN 2% OINT 22 GM TUBE ONE; +SILVER SULFADIAZINE 50GM CREAM ONE; -TRYPSIN/BALSAM PERU/CASTOR OIL ONE
== END ==
LOC: WCC 12-17 14:29
PROVIDERS: ATTEND Family Medicine
DX: E11.21 Type 2 diabetes mellitus with diabetic nephropathy (principal); E11.65 Type 2 diabetes mellitus with hyperglycemia; E11.628 Type 2 diabetes mellitus with other skin complications; L97.821 Non-pressure chronic ulcer of other part of left lower leg limited to breakdown of skin; I87.2 Venous insufficiency (chronic) (peripheral); I87.312 Chronic venous hypertension (idiopathic) with ulcer of left lower extremity; I87.332 Chronic venous hypertension (idiopathic) with ulcer and inflammation of left lower extremity; I89.0 Lymphedema, not elsewhere classified; R60.0 Localized edema; G89.29 Other chronic pain; I10 Essential (primary) hypertension; J45.909 Unspecified asthma, uncomplicated; M17.12 Unilateral primary osteoarthritis, left knee; G90.09 Other idiopathic peripheral autonomic neuropathy; B96.5 Pseudomonas (aeruginosa) (mallei) (pseudomallei) as the cause of diseases classified elsewhere; B96.29 Other Escherichia coli [E. coli] as the cause of diseases classified elsewhere; K21.9 Gastro-esophageal reflux disease without esophagitis; E78.00 Pure hypercholesterolemia, unspecified

== ENCOUNTER 2022-02-11 14:28 | Outpatient (RCR) | payer MEDICARE, OTHER ==
[~2022-02-11 14:28] MED LIST changes: +CEFTRIAXONE 1 GM VIAL ONE; -SILVER SULFADIAZINE 50GM CREAM ONE
== END 2022-02-14 ==
LOC: WCC 14:28
PROVIDERS: ATTEND Family Medicine
DX: I87.332 Chronic venous hypertension (idiopathic) with ulcer and inflammation of left lower extremity (principal); E11.65 Type 2 diabetes mellitus with hyperglycemia; E11.21 Type 2 diabetes mellitus with diabetic nephropathy; E11.628 Type 2 diabetes mellitus with other skin complications; L97.821 Non-pressure chronic ulcer of other part of left lower leg limited to breakdown of skin; I89.0 Lymphedema, not elsewhere classified; I87.2 Venous insufficiency (chronic) (peripheral); R60.0 Localized edema; G89.29 Other chronic pain; I10 Essential (primary) hypertension; K21.9 Gastro-esophageal reflux disease without esophagitis; E78.00 Pure hypercholesterolemia, unspecified; G90.09 Other idiopathic peripheral autonomic neuropathy; B96.5 Pseudomonas (aeruginosa) (mallei) (pseudomallei) as the cause of diseases classified elsewhere; B96.29 Other Escherichia coli [E. coli] as the cause of diseases classified elsewhere; J45.909 Unspecified asthma, uncomplicated; M17.12 Unilateral primary osteoarthritis, left knee
CPT/HCPCS: 11042; 11045; 29581 ×12; 87071; 87075; 87186; 87205; 96372 ×4; 99212; 99213 ×9; J0696

== ENCOUNTER 2022-03-15 15:32 | Outpatient (RCR) | payer MEDICARE, OTHER ==
[~2022-03-15 15:32] MED LIST changes: -CEFTRIAXONE 1 GM VIAL ONE; -GENTAMICIN SULFATE 15 GM CR TP ONE; +MINERAL OIL/PETROLAT/GLYCERI 2OZ CRM ONE
== END 2022-03-17 ==
LOC: WCC 15:32
PROVIDERS: ATTEND Family Medicine
DX: I87.332 Chronic venous hypertension (idiopathic) with ulcer and inflammation of left lower extremity (principal); L97.821 Non-pressure chronic ulcer of other part of left lower leg limited to breakdown of skin; E11.628 Type 2 diabetes mellitus with other skin complications; E11.21 Type 2 diabetes mellitus with diabetic nephropathy; E11.65 Type 2 diabetes mellitus with hyperglycemia; I87.2 Venous insufficiency (chronic) (peripheral); G90.09 Other idiopathic peripheral autonomic neuropathy; I89.0 Lymphedema, not elsewhere classified; R60.0 Localized edema; G89.29 Other chronic pain; I10 Essential (primary) hypertension; E78.00 Pure hypercholesterolemia, unspecified; K21.9 Gastro-esophageal reflux disease without esophagitis; M17.12 Unilateral primary osteoarthritis, left knee; J45.909 Unspecified asthma, uncomplicated; B96.5 Pseudomonas (aeruginosa) (mallei) (pseudomallei) as the cause of diseases classified elsewhere
CPT/HCPCS: 71046

== ENCOUNTER → 2022-04-17 | Outpatient (RCR) | payer MEDICARE, OTHER ==
[~2022-04-17] MED LIST changes: -MINERAL OIL/PETROLAT/GLYCERI 2OZ CRM ONE
== END ==
LOC: WCC 03-18 15:20
PROVIDERS: ATTEND Family Medicine
DX: E11.21 Type 2 diabetes mellitus with diabetic nephropathy (principal); E11.65 Type 2 diabetes mellitus with hyperglycemia; E11.628 Type 2 diabetes mellitus with other skin complications; I87.332 Chronic venous hypertension (idiopathic) with ulcer and inflammation of left lower extremity; L97.821 Non-pressure chronic ulcer of other part of left lower leg limited to breakdown of skin; I87.2 Venous insufficiency (chronic) (peripheral); I89.0 Lymphedema, not elsewhere classified; R60.0 Localized edema; G89.29 Other chronic pain; G90.09 Other idiopathic peripheral autonomic neuropathy; I10 Essential (primary) hypertension; M17.12 Unilateral primary osteoarthritis, left knee; K21.9 Gastro-esophageal reflux disease without esophagitis; J45.909 Unspecified asthma, uncomplicated; E78.00 Pure hypercholesterolemia, unspecified; B96.29 Other Escherichia coli [E. coli] as the cause of diseases classified elsewhere
CPT/HCPCS: 88304

== ENCOUNTER → 2022-05-17 | Outpatient (RCR) | payer MEDICARE, OTHER ==
[~2022-05-17] MED LIST changes: +CEFTRIAXONE 1 GM VIAL ONE; +MINERAL OIL/PETROLAT/GLYCERI 2OZ CRM ONE; +MUPIROCIN 2% OINT 22 GM TUBE ONE; +TRYPSIN/BALSAM PERU/CASTOR OIL ONE
== END ==
LOC: WCC 04-19 14:33
PROVIDERS: ATTEND Family Medicine
DX: E11.21 Type 2 diabetes mellitus with diabetic nephropathy (principal); E11.65 Type 2 diabetes mellitus with hyperglycemia; E11.628 Type 2 diabetes mellitus with other skin complications; I87.332 Chronic venous hypertension (idiopathic) with ulcer and inflammation of left lower extremity; L97.821 Non-pressure chronic ulcer of other part of left lower leg limited to breakdown of skin; I87.2 Venous insufficiency (chronic) (peripheral); I89.0 Lymphedema, not elsewhere classified; R60.0 Localized edema; G89.29 Other chronic pain; I10 Essential (primary) hypertension; E78.00 Pure hypercholesterolemia, unspecified; M17.12 Unilateral primary osteoarthritis, left knee; J45.909 Unspecified asthma, uncomplicated; K21.9 Gastro-esophageal reflux disease without esophagitis; G90.09 Other idiopathic peripheral autonomic neuropathy; B96.29 Other Escherichia coli [E. coli] as the cause of diseases classified elsewhere
CPT/HCPCS: 11042 ×3; 11045; 29581 ×12; 96372 ×3; 99213 ×10; J0696

== ENCOUNTER → 2022-06-17 | Outpatient (RCR) | payer MEDICARE, OTHER ==
[~2022-06-17] MED LIST changes: -CEFTRIAXONE 1 GM VIAL ONE; -MINERAL OIL/PETROLAT/GLYCERI 2OZ CRM ONE; -TRYPSIN/BALSAM PERU/CASTOR OIL ONE
== END ==
LOC: WCC 05-20 01:50
PROVIDERS: ATTEND Family Medicine
DX: E11.21 Type 2 diabetes mellitus with diabetic nephropathy (principal); E11.65 Type 2 diabetes mellitus with hyperglycemia; E11.628 Type 2 diabetes mellitus with other skin complications; L03.113 Cellulitis of right upper limb; I87.311 Chronic venous hypertension (idiopathic) with ulcer of right lower extremity; I87.332 Chronic venous hypertension (idiopathic) with ulcer and inflammation of left lower extremity; L97.821 Non-pressure chronic ulcer of other part of left lower leg limited to breakdown of skin; L97.811 Non-pressure chronic ulcer of other part of right lower leg limited to breakdown of skin; I89.0 Lymphedema, not elsewhere classified; R60.0 Localized edema; I87.2 Venous insufficiency (chronic) (peripheral); G89.29 Other chronic pain; I10 Essential (primary) hypertension; G90.09 Other idiopathic peripheral autonomic neuropathy; M17.12 Unilateral primary osteoarthritis, left knee; E78.00 Pure hypercholesterolemia, unspecified; J45.909 Unspecified asthma, uncomplicated; K21.9 Gastro-esophageal reflux disease without esophagitis; B96.29 Other Escherichia coli [E. coli] as the cause of diseases classified elsewhere

== ENCOUNTER → 2022-07-17 | Outpatient (CLI) | payer MEDICARE, OTHER ==
[~2022-07-17] MED LIST changes: -LIDOCAINE VISC 2% SOLN 15 ML UDC ONE; -MINERAL OIL/PETROLAT/GLYCERI 6OZ BTL ONE; -MUPIROCIN 2% OINT 22 GM TUBE ONE
== END ==
LOC: US 13:22
PROVIDERS: ATTEND Family Medicine
DX: R22.41 Localized swelling, mass and lump, right lower limb (principal)
CPT/HCPCS: 76882

== ENCOUNTER → 2022-07-17 | Outpatient (RCR) | payer MEDICARE, OTHER ==
[~2022-07-17] MED LIST changes: +LIDOCAINE VISC 2% SOLN 15 ML UDC ONE; +MINERAL OIL/PETROLAT/GLYCERI 2OZ CRM ONE; +MINERAL OIL/PETROLAT/GLYCERI 6OZ BTL ONE; +MUPIROCIN 2% OINT 22 GM TUBE ONE
== END ==
LOC: WCC 06-19 15:02
PROVIDERS: ATTEND Family Medicine
DX: E11.628 Type 2 diabetes mellitus with other skin complications (principal); E11.21 Type 2 diabetes mellitus with diabetic nephropathy; E11.65 Type 2 diabetes mellitus with hyperglycemia; I87.332 Chronic venous hypertension (idiopathic) with ulcer and inflammation of left lower extremity; L97.821 Non-pressure chronic ulcer of other part of left lower leg limited to breakdown of skin; I87.2 Venous insufficiency (chronic) (peripheral); I89.0 Lymphedema, not elsewhere classified; R60.0 Localized edema; G89.29 Other chronic pain; I10 Essential (primary) hypertension; G90.09 Other idiopathic peripheral autonomic neuropathy; E78.00 Pure hypercholesterolemia, unspecified; K21.9 Gastro-esophageal reflux disease without esophagitis; B96.29 Other Escherichia coli [E. coli] as the cause of diseases classified elsewhere; M17.12 Unilateral primary osteoarthritis, left knee; J45.909 Unspecified asthma, uncomplicated

== ENCOUNTER 2022-09-16 14:49 | Outpatient (RCR) | payer MEDICARE, OTHER ==
[~2022-09-16 14:49] MED LIST changes: -MUPIROCIN 2% OINT 22 GM TUBE ONE
== END 2022-09-17 ==
LOC: WCC 14:49
PROVIDERS: ATTEND Internal Medicine Infectious Disease
DX: E11.21 Type 2 diabetes mellitus with diabetic nephropathy (principal); E11.65 Type 2 diabetes mellitus with hyperglycemia; E11.628 Type 2 diabetes mellitus with other skin complications; L97.821 Non-pressure chronic ulcer of other part of left lower leg limited to breakdown of skin; L97.829 Non-pressure chronic ulcer of other part of left lower leg with unspecified severity; I87.312 Chronic venous hypertension (idiopathic) with ulcer of left lower extremity; I87.2 Venous insufficiency (chronic) (peripheral); I89.0 Lymphedema, not elsewhere classified; R60.0 Localized edema; G89.29 Other chronic pain; G90.09 Other idiopathic peripheral autonomic neuropathy; I10 Essential (primary) hypertension; E78.00 Pure hypercholesterolemia, unspecified; K21.9 Gastro-esophageal reflux disease without esophagitis; M17.12 Unilateral primary osteoarthritis, left knee; J45.909 Unspecified asthma, uncomplicated; B96.29 Other Escherichia coli [E. coli] as the cause of diseases classified elsewhere

== ENCOUNTER 2022-10-09 14:09 | Outpatient (RCR) | payer MEDICARE, OTHER ==
[~2022-10-09 14:09] MED LIST changes: -MINERAL OIL/PETROLAT/GLYCERI 2OZ CRM ONE
== END 2022-10-15 ==
LOC: WCC 14:09
PROVIDERS: ATTEND Family Medicine Adult Medicine
DX: R60.0 Localized edema (principal)